=== PATIENT | male | born 1975 | race Caucasian/White ===

== ENCOUNTER 2018-12-03 12:35 | Inpatient (IN) ==
--- NOTE | 2018-12-03 14:24 | Emergency Department Note ---
Disposition Clinical Impression: Cellulitis of knee, Knee effusion, right Cellulitis Qualifiers: Site of cellulitis: extremity Site of cellulitis of extremity: lower extremity Laterality: right Qualified Code(s): L03.115 - Cellulitis of right lower limb Disposition: Admitted As Inpatient Condition: Good Time of Disposition: 18:23 General Adult HPI - General Chief complaint: ED Extremity Problem,Nontraumatic Stated complaint: Right leg cellulitis Time Seen by Provider: 12/03/18 14:06 Source: patient Limitations: no limitations Nursing Notes Reviewed: Yes Vital Signs Reviewed: Yes - History of Present Illness HPI Narrative: Patient is a 42-year-old male history of diabetes hypertension hyperlipidemia, psoriasis and recent cellulitis who presents to the emergency department from his rheumatology clinic appointment. He states that his pound keeper told him to come in to get IV antibiotics for his right leg cellulitis that is not resolved with outpatient antibiotic treatment with Augmentin. Patient reports his right knee is swollen, tender, pain with movement and that the redness has gone away significantly but has not completely resolved. Patient was recently in the hospital for treatment of this cellulitis and concerns for septic arthritis. Blood cultures and joint aspirate culture were negative. Patient was discharged on Augmentin, and told to follow up with rheumatology for evaluation for his psoriasis. Patient admits that he was constipated for the past week or so but today he has had multiple bowel movements. Patient denies fever, chills, chest pain, shortness of breath, abdominal pain, urinary changes. He admits to a cough that is had since before his admission but has not gone away. Pain Scale: 5 - Related Data Home Medications Medication Instructions Recorded Confirmed Lisinopril [Zestril] 5 mg PO DAILY 12/11/17 11/23/18 Atorvastatin [Lipitor] 40 mg PO HS 11/24/18 11/24/18 Dapagliflozin Propanediol [Farxiga] 10 mg PO DAILY 11/24/18 11/24/18 GlipiZIDE [Glucotrol] 5 mg PO BID 11/24/18 11/24/18 Ibuprofen 800 mg PO BID PRN 11/24/18 11/24/18 Insulin Degludec/Liraglutide 0 - 50 units SQ DAILY 11/24/18 11/24/18 [Xultophy 100 Unit-3.6MG/ml Pen] Insulin LISPRO [Humalog Kwikpen 0 unit SQ TIDAC 11/24/18 11/24/18 U-100] Metformin HCl [Fortamet] 500 mg PO DAILY 11/24/18 11/24/18 Omeprazole [PriLOSEC] 40 mg PO DAILY 11/24/18 11/24/18 Previous Rx's Medication Instructions Recorded Amoxicillin/Clavulanate [Augmentin] 875 mg PO BIDWM #14 tablet 11/27/18 Doxycycline Hyclate 100 mg PO BID #14 capsule 11/27/18 Lactobacillus [Culturelle] 1 each PO BID #30 cap.sprink 11/27/18 predniSONE [PredniSONE] 40 mg PO DAILY #14 tablet 11/27/18 Allergies Allergy/AdvReac Type Severity Reaction Status Date / Time No Known Allergies Allergy Verified 12/03/18 13:02 Constitutional: Denies: fever, chills Cardiovascular: Denies: chest pain, palpitations, dyspnea on exertion, orthopnea Respiratory: Reports: cough. Denies: dyspnea, wheezes Gastrointestinal: Reports: diarrhea, constipation. Denies: abdominal pain, nausea, vomiting Genitourinary: Reports: as per HPI. Denies: urgency, dysuria Integumentary: Reports: rash, lesions Past Medical History - Past Medical History Attestation: Yes The following information was validated with the patient. Medical history: Reports: diabetes, GERD, hyperlipidemia, hypertension Surgical history: Reports: no surgical history Psychiatric history: Reports: no psych history - Social History Smoking Status: Former smoker Smokeless Tobacco Status: No Alcohol use: Reports: none Drug use: Reports: none Physical Exam - General Limitations: no limitations General appearance: alert, in no apparent distress - Head Head exam: atraumatic, normocephalic - Eye Eye exam: Present: normal appearance, PERRL, EOMI - ENT ENT exam: normal exam, normal oropharynx, mucous membranes moist - Neck Neck exam: Present: normal inspection, full ROM - Chest Chest inspection: Present: normal inspection, symmetric chest wall rise - Respiratory Respiratory exam: Absent: respiratory distress - Cardiovascular Cardiovascular exam: Present: regular rate, normal rhythm, normal heart sounds - Abdominal Exam Abdominal exam: Present: soft, Non-Tender. Absent: tenderness, distention - Extremities Exam Extremities exam: Present: other (Right knee swollen, tenderness, redness on the lateral aspect of the second seconds approximately 6 cm up his thigh. Decreased range of motion of the right joint with pain. Patient has several psoriatic lesions on his lower extremities.) Course Course Narrative: Patient presented after an appointment with his pound keeper who had concerns for continued cellulitis. Patient was recently admitted for the cellulitis. We will collect labs repeat a CT scan of the patient's right knee and treat with empiric antibiotics. - Reevaluation(s) Reevaluation #1: [place] Dr. Garcia who sent the patient here. He had concerns for continued cellulitis in one of the patient be evaluated. - Consultations Consultation #1: Spoke with Dr. Diggs of orthopedics. He recommended admission to the hospitalist team for IV antibiotics and a consult specifically for Dr. Sundeep Briones who had seen this patient previously. Time: 17:03 Vital Signs Temperature 98.0 F 12/03/18 13:00 Pulse Rate 96 12/03/18 13:00 Respiratory Rate 16 12/03/18 13:00 Blood Pressure 160/109 12/03/18 13:00 O2 Sat by Pulse Oximetry 98 12/03/18 13:00 Temperature 97.8 F 12/03/18 20:39 Pulse Rate 96 12/03/18 20:39 Respiratory Rate 16 12/03/18 20:39 Blood Pressure 172/96 12/03/18 20:39 O2 Sat by Pulse Oximetry 97 12/03/18 20:39 Oxygen Delivery Oxygen Delivery Room Air Medical Decision Making - MDM Narrative Medical decision making narrative: Patient presented emergency department with concerns for cellulitis refractory to outpatient treatment on antibiotics. Patient had been evaluated for septic arthritis previously and admitted for treatment of the cellulitis. Patient's pound keeper today for fear of this cellulitis was not improving and should come in to receive IV antibiotics. Spoke with the orthopedist recommended admission and consult to orthopedics. - Medical Records Medical records reviewed: Yes I reviewed the patient's medical records. - Lab Data Lab results reviewed: Yes I reviewed the patient's lab results. Result diagrams: 12/03/18 14:35 12/03/18 14:35 Lab Results 12/03/18 12/03/18 12/03/18 Range/Units 14:35 14:35 14:35 WBC 12.1 H (4.3-11.1) K/mcL RBC 4.91 (4.19-5.50) M/mcL Hgb 14.3 (12.9-16.9) g/dL Hct 42.5 (37.5-50.1) % MCV 86.6 (83.0-100.0) fL MCH 29.1 (28.0-33.3) pg MCHC 33.6 (31.6-35.5) g/dL RDW 12.5 (11.5-14.5) % Plt Count 299 (140-400) K/mcL MPV 10.6 (9.4-12.4) fL Immature Gran % 1.1 (0-4) % Seg Neutrophils % 90.4 % Lymphocytes % 6.6 % Monocytes % 1.7 % Eosinophils % 0.0 % Basophils % 0.2 % Neutrophils # 10.9 H (1.6-8.9) K/mcL Lymphocytes # 0.8 (0.6-4.6) K/mcL Monocytes # 0.2 (0.0-1.3) K/mcL Eosinophils # 0.0 (0.0-0.6) K/mcL Basophils # 0.0 (0.0-0.2) K/mcL Sodium 135 L (136-145) mEq/L Potassium 4.6 (3.5-5.1) mEq/L Chloride 95 L (98-107) mEq/L Carbon Dioxide 31 H (23-29) mEq/L BUN 14 (6-20) mg/dL Creatinine 0.93 (0.70-1.30) mg/dL Est GFR ( Amer) > 60 (> 60) Est GFR (Non-Af Amer) > 60 (> 60) BUN/Creatinine Ratio 15 (6-26) Glucose 384 H (70-105) mg/dL Calculated Osmolality 296 (280-300) Lactic Acid 1.0 (0.5-2.2) mmol/L Calcium 9.5 (8.6-10.3) mg/dL - Radiology Data Radiology results reviewed: Yes I reviewed the patient's radiology results.
[2018-12-03] MEDS ORDERED: Piperacillin/Tazobactam 3.375 GM in 0.9 % Sodium Chloride Mini Bag 100 ML IVPB ONE (14:45)
[2018-12-03 15:01] LABS: Basophils % 0.2 %; Hematocrit 42.5 % (37.5-50.1); Hemoglobin 14.3 g/dL (12.9-16.9); Immature Granulocytes % 1.1 % (0-4); Lymphocytes # 0.8 K/mcL (0.6-4.6); Lymphocytes % 6.6 %; Mean Corpuscular HGB Conc 33.6 g/dL (31.6-35.5); Mean Corpuscular Hemoglobin 29.1 pg (28.0-33.3); Mean Corpuscular Volume 86.6 fL (83.0-100.0); Mean Platelet Volume 10.6 fL (9.4-12.4); Monocytes # 0.2 K/mcL (0.0-1.3); Monocytes % 1.7 %; Neutrophils # 10.9 K/mcL (1.6-8.9); Platelet Count 299 K/mcL (140-400); Red Blood Count 4.91 M/mcL (4.19-5.50); Red Cell Distribution Width 12.5 % (11.5-14.5); Segmented Neutrophils % 90.4 %; White Blood Count 12.1 K/mcL (4.3-11.1)
[2018-12-03] MEDS ORDERED: 0.9 % Sodium Chloride 1,000 ML IVC ONE (15:13)
[2018-12-03] MEDS ORDERED: Isovue-370 500 ML BOTTLE IVP ONE (15:23)
[2018-12-03 15:26] LABS: BUN/Creatinine Ratio 15 (6-26); Blood Urea Nitrogen 14 mg/dL (6-20); Calcium 9.5 mg/dL (8.6-10.3); Carbon Dioxide 31 mEq/L (23-29); Chloride 95 mEq/L (98-107); Glucose 384 mg/dL (70-105); Osmolality,Calculated 296 (280-300); Potassium 4.6 mEq/L (3.5-5.1); Sodium 135 mEq/L (136-145); eGFR For African Americans > 60 (> 60); eGFR For Non-African Americans > 60 (> 60)
--- NOTE | 2018-12-03 17:46 | Emergency Department Note ---
Disposition Clinical Impression: Cellulitis of knee, Knee effusion, right Cellulitis Qualifiers: Site of cellulitis: extremity Site of cellulitis of extremity: lower extremity Laterality: right Qualified Code(s): L03.115 - Cellulitis of right lower limb Disposition: Admitted As Inpatient Condition: Good Instructions: Cellulitis (ED) Referrals: Verena Matt, ISABEL [Primary Care Provider] - Forms: ED Satisfaction Letter Time of Disposition: 17:46 General Adult HPI - General Chief complaint: ED Extremity Problem,Nontraumatic Stated complaint: Right leg cellulitis Time Seen by Provider: 12/03/18 14:06 Source: patient Limitations: no limitations - History of Present Illness Pain Scale: 5 - Related Data Home Medications Medication Instructions Recorded Confirmed Lisinopril [Zestril] 5 mg PO DAILY 12/11/17 11/23/18 Atorvastatin [Lipitor] 40 mg PO HS 11/24/18 11/24/18 Dapagliflozin Propanediol [Farxiga] 10 mg PO DAILY 11/24/18 11/24/18 GlipiZIDE [Glucotrol] 5 mg PO BID 11/24/18 11/24/18 Ibuprofen 800 mg PO BID PRN 11/24/18 11/24/18 Insulin Degludec/Liraglutide 0 - 50 units SQ DAILY 11/24/18 11/24/18 [Xultophy 100 Unit-3.6MG/ml Pen] Insulin LISPRO [Humalog Kwikpen 0 unit SQ TIDAC 11/24/18 11/24/18 U-100] Metformin HCl [Fortamet] 500 mg PO DAILY 11/24/18 11/24/18 Omeprazole [PriLOSEC] 40 mg PO DAILY 11/24/18 11/24/18 Previous Rx's Medication Instructions Recorded Amoxicillin/Clavulanate [Augmentin] 875 mg PO BIDWM #14 tablet 11/27/18 Doxycycline Hyclate 100 mg PO BID #14 capsule 11/27/18 Lactobacillus [Culturelle] 1 each PO BID #30 cap.sprink 11/27/18 predniSONE [PredniSONE] 40 mg PO DAILY #14 tablet 11/27/18 Allergies Allergy/AdvReac Type Severity Reaction Status Date / Time No Known Allergies Allergy Verified 12/03/18 13:02 Constitutional: Denies: fever, chills Cardiovascular: Denies: chest pain, palpitations, dyspnea on exertion, orthopnea Respiratory: Reports: cough. Denies: dyspnea, wheezes Gastrointestinal: Reports: diarrhea, constipation. Denies: abdominal pain, nausea, vomiting Genitourinary: Reports: as per HPI. Denies: urgency, dysuria Integumentary: Reports: rash, lesions Past Medical History - Past Medical History Medical history: Reports: diabetes, GERD, hyperlipidemia, hypertension Surgical history: Reports: no surgical history Psychiatric history: Reports: no psych history - Social History Smoking Status: Former smoker Smokeless Tobacco Status: No Alcohol use: Reports: none Drug use: Reports: none Physical Exam - General Limitations: no limitations General appearance: alert, in no apparent distress Course - Consultations Consultation #1: discussed case wit Dr. De Leon and she accepts patinet for admission. Time: 18:47 Vital Signs Temperature 98.0 F 12/03/18 13:00 Pulse Rate 96 12/03/18 13:00 Respiratory Rate 16 12/03/18 13:00 Blood Pressure 160/109 12/03/18 13:00 O2 Sat by Pulse Oximetry 98 12/03/18 13:00 Temperature 98.0 F 12/03/18 13:00 Pulse Rate 96 12/03/18 17:28 Respiratory Rate 18 12/03/18 17:28 Blood Pressure 172/105 12/03/18 17:28 O2 Sat by Pulse Oximetry 96 12/03/18 17:28 Oxygen Delivery Oxygen Delivery Room Air Medical Decision Making - Lab Data Result diagrams: 12/03/18 14:35 12/03/18 14:35 Lab Results 12/03/18 12/03/18 12/03/18 Range/Units 14:35 14:35 14:35 WBC 12.1 H (4.3-11.1) K/mcL RBC 4.91 (4.19-5.50) M/mcL Hgb 14.3 (12.9-16.9) g/dL Hct 42.5 (37.5-50.1) % MCV 86.6 (83.0-100.0) fL MCH 29.1 (28.0-33.3) pg MCHC 33.6 (31.6-35.5) g/dL RDW 12.5 (11.5-14.5) % Plt Count 299 (140-400) K/mcL MPV 10.6 (9.4-12.4) fL Immature Gran % 1.1 (0-4) % Seg Neutrophils % 90.4 % Lymphocytes % 6.6 % Monocytes % 1.7 % Eosinophils % 0.0 % Basophils % 0.2 % Neutrophils # 10.9 H (1.6-8.9) K/mcL Lymphocytes # 0.8 (0.6-4.6) K/mcL Monocytes # 0.2 (0.0-1.3) K/mcL Eosinophils # 0.0 (0.0-0.6) K/mcL Basophils # 0.0 (0.0-0.2) K/mcL Sodium 135 L (136-145) mEq/L Potassium 4.6 (3.5-5.1) mEq/L Chloride 95 L (98-107) mEq/L Carbon Dioxide 31 H (23-29) mEq/L BUN 14 (6-20) mg/dL Creatinine 0.93 (0.70-1.30) mg/dL Est GFR ( Amer) > 60 (> 60) Est GFR (Non-Af Amer) > 60 (> 60) BUN/Creatinine Ratio 15 (6-26) Glucose 384 H (70-105) mg/dL Calculated Osmolality 296 (280-300) Lactic Acid 1.0 (0.5-2.2) mmol/L Calcium 9.5 (8.6-10.3) mg/dL Attestation Statement - Attestation Attestation: I reviewed the residents documentation and agree with the residents assessment and plan of care. I have personally had face to face time with the patient. (Brief History, Brief Exam, and MDM) I personally supervised and was present for the ortiz/critical portions of the following procedures completed by the resident: 42 year old male presents to the ED with complaints of right knee pain and infection. PAtinet states that he was most recently admitted for this same problem but it was worse than and he was evaluted for septic arhtritis. PAtinet states that he infection appears to have gotten better. however he has been on outpatient therapy with antibitoics and was being evaluated by his roadside mechanic Dr. Kaba who was concerned for increased infection. WE have done a repeat CT scan that shows cellulitis and possible patellar phlegmon, and we have discussed case with ortho who will see in consult. admit to medicine with IV ABX started
[2018-12-03] MEDS ORDERED: *HR* Dextrose 50 % in Water (Syg) 50 ML SYRINGE IVP PRN (20:45)
[2018-12-03] MEDS ORDERED: Dextrose Gel 15 GM/37.5 ML TUBE PO PRN ×2 (20:45)
[2018-12-03] MEDS ORDERED: Acetaminophen 325 MG TABLET PO PRN (20:45)
--- NOTE | 2018-12-03 22:15 | Internal Med History&Physical ---
Date of Encounter: 12/03/18 Time of Encounter: 22:14 Internal Medicine - H&P: HPI Chief complaint: right knee swelling Admitted From: Home Plans for Post Hospital Care: Home History of present illness: Josh Bonner is a 42 year old man with poorly controlled diabetes, hypertension, hyperlipidemia and psoriasis who was admitted here about 10 days ago with the complaint of right knee pain, swelling and erythema in addition to fever and chills. On CT scan he was seen to have extensive edema and fluid circumferentially around the knee within both the subcutaneous fat and muscular compartments compatible with cellulitis, fasciitis and myositis. There was also small moderate-sized joint effusion. Blood work showed elevated procalcitonin levels, CRP and ESR. All these findings are concerning for an infective process and was started on empiric antibiotics. Right knee aspiration was attempted w ith serosanguineous fluid extracted and sent for Gram stain and culture which ended up with of culture growth. He says the erythema and swelling seemed to improve with the IV antibiotics so given this confounding factor and also the fact that he had underlying psoriasis, he was discharged with steroids and a course of oral antibiotics to continue as it was unclear what the actual cause was. Comes back to the emergency room today upon referral from the rheumatology clinic where he went to for follow-up. He says the right knee pain and swelling persists but denies having fever and chills. He says the redness has not returned. Repeat CT scan was done which showed persisting subcutaneous edema and focal fluid with possibly some written enhancement. Lab work showed her leukocyte count of 12.1 is lower than his initial presentation 10 days ago at 17. Blood cultures were obtained and he was given a dose of vancomycin and PipTazo. Of note, he denies any trauma or puncture injuries to the area. He has no underlying hardware there. Vitals: Reviewed General: Well-developed male lying comfortably in bed in no acute distress. Skin: Warm, dry with multiple psoriatic lesions on his lower extremities. HEENT: Moist mucous membranes. No conjunctivae pallor. Neck: No lymphadenopathy. No JVD. No carotid bruits. No palpable thyroid. Chest: Normal thoracic expansion. Normal breath sounds. Clear to auscultation. Heart: Normal S1 & S2; rhythmic. No rubs or murmurs. Abdomen: Non-distended, soft and non-tender to palpation. No peritoneal reaction. Extremities: No clubbing, cyanosis. No calf tenderness. Right knee circumferentially swollen, boggy and moderately tender to palpation. Right foot is notably cold to touch when compared to the left with somewhat diminished DP pulse. Neurological: Awake, alert and oriented to person, place and time. No focal deficits. Psych: Affect appropriate. Assessment/Plan 1. Right knee swelling: Unclear etiology. He has signs concerning for an infection such as the report of erythema improving with antibiotics, the leukocytosis on prior presentation which seemed to lower when started on abx. The elevated CRP/ESR is non-specific and can be seen in both infectious and inflammatory causes such as a reactive arthritis or psoriatic arthritis which remain differentials. His VAN and CCP IgG were negative however. There seems to have been no synovial fluid cell count or testing for crystals on his prior admission. This would be helpful. Given his underlying poorly controlled diabetes, the persisting signs seen clinically and radiologically and his prior response to intravenous antibiotics, will start vancomycin and cefepime. Will consult orthopedic surgery again as he may benefit from another tap especially now with concerns for a rim enhancing collection. 2. Right foot arterial insufficiency: Suspected based on physical exam. Will get an CHAD to check actual flow status. 3. Diabetes: Poorly controlled. Will place on basal and sliding scale insulin. 4. Hypertension: On Lisinopril. Past Med Surg Social Fam HX - Past Medical History Medical history: diabetes, GERD, hyperlipidemia, hypertension Psychiatric history: no psych history - Past Surgical History Surgical History: no surgical history - Social History Smoking Status: Former smoker Smokeless Tobacco Status: No Alcohol use: none Drug use: none - Family History Father Adopted: No Family Member Ethnicity: Non- Living Status: Age at : 63 Hx Family Cardiac Disorders: Yes ([place]) Hx Family Respiratory Disorders: No Hx Family Cancer: Yes Hx Family GI Disorders: No Hx Family Endocrine Disorder: Yes (pt states his father's mother had DM) Hx Family Neuromuscular Disorders: No Hx Family Neurologic Disorders: No Hx Family HEENT Disorders: No Hx Family Autoimmune Disorders: No Mother Adopted: No Family Member Ethnicity: Non- Living Status: Still Living Hx Family Cardiac Disorders: No Hx Family Respiratory Disorders: No Hx Family Cancer: Yes (uterus) Hx Family GI Disorders: No Hx Family Endocrine Disorder: No Hx Family Neuromuscular Disorders: No Hx Family Neurologic Disorders: No Hx Family HEENT Disorders: No Hx Family Autoimmune Disorders: No Internal Medicine - H&P: Meds Lisinopril [Zestril] 5 mg PO DAILY 12/11/17 [History] Atorvastatin [Lipitor] 40 mg PO HS 11/24/18 [History] Dapagliflozin Propanediol [Farxiga] 10 mg PO DAILY 11/24/18 [History] GlipiZIDE [Glucotrol] 5 mg PO BID 11/24/18 [History] Ibuprofen 800 mg PO BID PRN 11/24/18 [History] Insulin Degludec/Liraglutide [Xultophy 100 Unit-3.6MG/ml Pen] 0 - 50 units SQ DAILY 11/24/18 [History] Insulin LISPRO [Humalog Kwikpen U-100] 0 unit SQ TIDAC 11/24/18 [History] Metformin HCl [Fortamet] 500 mg PO DAILY 11/24/18 [History] Omeprazole [PriLOSEC] 40 mg PO DAILY 11/24/18 [History] Amoxicillin/Clavulanate [Augmentin] 875 mg PO BIDWM #14 tablet 11/27/18 [Rx] Doxycycline Hyclate 100 mg PO BID #14 capsule 11/27/18 [Rx] Lactobacillus [Culturelle] 1 each PO BID #30 cap.sprink 11/27/18 [Rx] predniSONE [PredniSONE] 40 mg PO DAILY #14 tablet 11/27/18 [Rx] Allergy/AdvReac Type Severity Reaction Status Date / Time No Known Allergies Allergy Verified 12/03/18 13:02 All Systems PM: A 10-system review of systems was performed and is negative for pertinent findings except as documented above in the HPI. - Constitutional Vitals: Temp Pulse Resp BP Pulse Ox 97.8 F 96 16 172/96 97 12/03/18 20:39 12/03/18 20:39 12/03/18 20:39 12/03/18 20:39 12/03/18 20:39 Exam: . Internal Med - H&P Results - Labs CBC & Chem 7: 12/03/18 14:35 12/03/18 14:35 Labs: Short CBC 12/03/18 Range/Units 14:35 WBC 12.1 H (4.3-11.1) K/mcL Hgb 14.3 (12.9-16.9) g/dL Hct 42.5 (37.5-50.1) % Plt Count 299 (140-400) K/mcL Neutrophils # 10.9 H (1.6-8.9) K/mcL BMP 12/03/18 14:35 Sodium 135 L Potassium 4.6 Chloride 95 L Carbon Dioxide 31 H BUN 14 Creatinine 0.93 Glucose 384 H Calcium 9.5 - Impressions ITS Impressions Chest X-Ray 12/03/18 14:44 IMPRESSION: No evidence for acute cardiopulmonary process. D/ / Prakash Rivera MD / Prakash Rivera MD Interpreting Provider: Prakash Rivera MD Knee CT 12/03/18 15:23 IMPRESSION: Persistent subcutaneous edema diffusely about the knee, similar to prior exam and concerning for cellulitis. No soft tissue gas. Persistent somewhat focal fluid with possibly some thin rim enhancement in the subcutaneous fat anterior to the patella/patellar tendon. This may reflect phlegmon or developing abscess, similar to prior exam. This measures grossly 2.6 x 3.6 x 1.3 cm. No internal gas. Persistent intra fascial fluid to the superficial fascia of distal anterolateral quadriceps musculature, also similar and concerning for nonspecific fasciitis. No intra fascial gas identified. Given similarity since 11/23/2018, necrotizing fasciitis is unlikely. Stable small nonspecific knee joint effusion. Septic arthritis cannot be excluded based on this exam. No acute bony abnormalities. No CT evidence for osteomyelitis. D/ / 12/03/2018 16:55:40 Prakash Rivera MD / [email or web address] Interpreting Provider: Prakash Rivera MD - Time Spent With Patient Total time spent is greater than 50% in coordination of care (as documented) at patient's floor/unit and/or counseling patient:
[2018-12-03] MEDS: Insulin LISPRO 300 UNITS/3 ML VIAL SQ SCH (22:51)
[2018-12-03] MEDS: Insulin DETEMIR 100 UNIT/ML X5UNITS SQ SCH (23:01)
[2018-12-04 04:09] LABS: White Blood Count 10.9 K/mcL (4.3-11.1)
[2018-12-04 04:10] LABS: Basophils % 0.4 %; Eosinophils # 0.1 K/mcL (0.0-0.6); Eosinophils % 0.5 %; Hematocrit 40.6 % (37.5-50.1); Hemoglobin 13.6 g/dL (12.9-16.9); Immature Granulocytes % 0.9 % (0-4); Lymphocytes # 2.6 K/mcL (0.6-4.6); Lymphocytes % 23.9 %; Mean Corpuscular HGB Conc 33.5 g/dL (31.6-35.5); Mean Corpuscular Hemoglobin 28.5 pg (28.0-33.3); Mean Corpuscular Volume 84.9 fL (83.0-100.0); Mean Platelet Volume 10.2 fL (9.4-12.4); Monocytes # 0.6 K/mcL (0.0-1.3); Monocytes % 5.9 %; Neutrophils # 7.5 K/mcL (1.6-8.9); Platelet Count 289 K/mcL (140-400); Red Blood Count 4.78 M/mcL (4.19-5.50); Red Cell Distribution Width 12.4 % (11.5-14.5); Segmented Neutrophils % 68.4 %
[2018-12-04 04:21] LABS: Activated Partial Thrombo Time 32.2 Seconds (26.0-36.0)
[2018-12-04 04:30] LABS: BUN/Creatinine Ratio 11 (6-26); Blood Urea Nitrogen 9 mg/dL (6-20); Calcium 9.3 mg/dL (8.6-10.3); Carbon Dioxide 28 mEq/L (23-29); Chloride 100 mEq/L (98-107); Glucose 208 mg/dL (70-105); Osmolality,Calculated 289 (280-300); Potassium 3.5 mEq/L (3.5-5.1); Sodium 137 mEq/L (136-145); eGFR For African Americans > 60 (> 60); eGFR For Non-African Americans > 60 (> 60)
[2018-12-04] MEDS: Cefepime HCl 2,000 MG in 0.9 % Sodium Chloride Mini Bag 100 ML IVPB SCH ×2 (05:19→17:35)
[2018-12-04] MEDS: *HR* Heparin 5,000 UNIT/ML VIAL SQ SCH ×2 (05:23→17:55)
[2018-12-04] MEDS: traMADol 50 MG TABLET PO PRN ×2 (06:00→15:36)
[2018-12-04] MEDS ORDERED: Gadolinium Contrast Agent (WT Based) IV PRN (09:19)
[2018-12-04] MEDS: Insulin LISPRO 300 UNITS/3 ML VIAL SQ SCH ×4 (09:46→20:56)
[2018-12-04] MEDS: 0.9 % Sodium Chloride 1,000 ML IVC SCH (09:47)
--- NOTE | 2018-12-04 11:08 | Orthopedic Consult Note ---
Date of Encounter: 12/04/18 Time of Encounter: 12:20 Assessment and Plan (1) Pain in right knee Current Visit: Yes Status: Acute Qualifiers: Chronicity: unspecified Qualified Code(s): M25.561 - Pain in right knee (2) Effusion, right knee Current Visit: Yes Status: Acute History of Present Illness Chief complaint: right knee pain HPI: Mr. Bonner is a 42 year old male presenting to ED for right knee pain/swelling concern for infection. He was admitted last week for this same issue and had knee aspiration by Dr. Briones which revealed no infection. He was discharged with plan for rheumatologic and orthopedic follow up. Patient was to see this author yesterday in office, however, was sent to ED on recommendation from Dr. Kaba, Rheumatology. Patient states his pain and swelling is not much better from day of discharge from hospital on 11/27. Patient's spouse and friend at bedside. On exam knee is noted to be swollen with faint erythema surrounding anterior knee. No induration or flucutance is noted. Moderate effusion is noted to the right knee. No palpable focal area of fluctuance or induration noted as would correspond on CT findings, however, patient is more tender with expression of greater pain to medial knee aspect of joint line. Patient also points to pain to right thigh. No calf tenderness, erythema, or warmth bilaterally 1+ pitting edema noted to rigt foot to ankle. Knee motion appx 0-90 degrees with relative ease, patient wincing during this motion. Ankle motion intact [place] noted to b/l ankles with less erythema and scaling compared to last examination during last week's hospitalization. DP pulses 2+ bilaterally Neurovascularly intact b/l LE. Images and reports reviewed. CT findings of: Persistent subcutaneous edema diffusely about the knee, similar to prior exam and concerning for cellulitis. No soft tissue gas. Persistent somewhat focal fluid with possibly some thin rim enhancement in the subcutaneous fat anterior to the patella/patellar tendon. This may reflect phlegmon or developing abscess, similar to prior exam. This measures grossly 2.6 x 3.6 x 1.3 cm. No internal gas. Persistent intra fascial fluid to the superficial fascia of distal anterolateral quadriceps musculature, also similar and concerning for nonspecific fasciitis. No intra fascial gas identified. Given similarity since 11/23/2018, necrotizing fasciitis is unlikely. Stable small nonspecific knee joint effusion. Septic arthritis cannot be excluded based on this exam. No acute bony abnormalities. No CT evidence for osteomyelitis. Patient case discussed with Dr. Briones At this point, MRI is pending, which will provide further detail regarding concerning findings on CT. Clinically with motion, patient is improved compared to last exam, however, CT findings are different. Will await MRI as ordered by hospitalist for further discussion whether repeat beside aspiration versus IR aspiration is warranted. In the mean time, patient's symptoms have improved with IV antibiotics and therefore will defer at present to hospitalist for choice. Will continue to follow and review MRI findings once obtained. Past Med Surg Social Fam HX - Past Medical History Medical history: diabetes, GERD, hyperlipidemia, hypertension Psychiatric history: no psych history - Past Surgical History Surgical History: no surgical history - Social History Smoking Status: Former smoker Smokeless Tobacco Status: No Alcohol use: none Drug use: none - Family History Father Adopted: No Family Member Ethnicity: Non- Living Status: Age at : 61 Hx Family Cardiac Disorders: Yes (ID) Hx Family Respiratory Disorders: No Hx Family Cancer: Yes Hx Family GI Disorders: No Hx Family Endocrine Disorder: Yes (pt states his father's mother had DM) Hx Family Neuromuscular Disorders: No Hx Family Neurologic Disorders: No Hx Family HEENT Disorders: No Hx Family Autoimmune Disorders: No Mother Adopted: No Family Member Ethnicity: Non- Living Status: Still Living Hx Family Cardiac Disorders: No Hx Family Respiratory Disorders: No Hx Family Cancer: Yes (uterus) Hx Family GI Disorders: No Hx Family Endocrine Disorder: No Hx Family Neuromuscular Disorders: No Hx Family Neurologic Disorders: No Hx Family HEENT Disorders: No Hx Family Autoimmune Disorders: No Medications and Allergies Lisinopril [Zestril] 5 mg PO DAILY 12/11/17 [History] Atorvastatin [Lipitor] 40 mg PO HS 11/24/18 [History] Dapagliflozin Propanediol [Farxiga] 10 mg PO DAILY 11/24/18 [History] GlipiZIDE [Glucotrol] 5 mg PO BID 11/24/18 [History] Ibuprofen 800 mg PO BID PRN 11/24/18 [History] Insulin Degludec/Liraglutide [Xultophy 100 Unit-3.6MG/ml Pen] 50 units SQ DAILY 11/24/18 [History] Insulin LISPRO [Humalog Kwikpen U-100] 0 unit SQ TIDAC 11/24/18 [History] Metformin HCl [Fortamet] 500 mg PO DAILY 11/24/18 [History] Omeprazole [PriLOSEC] 40 mg PO DAILY 11/24/18 [History] Lactobacillus [Culturelle] 1 each PO BID #30 cap.sobiaink 11/27/18 [Rx] Allergy/AdvReac Type Severity Reaction Status Date / Time No Known Allergies Allergy Verified 12/03/18 13:02 All Systems Reviewed: The remainder of the systems were reviewed and are negative Physical Exam - Constitutional Vitals: Temp Pulse Resp BP Pulse Ox 98.3 F 86 16 158/88 96 12/04/18 08:19 12/04/18 08:19 12/04/18 08:19 12/04/18 08:19 12/04/18 08:19 Results - Labs Result Diagrams: 12/04/18 03:53 12/04/18 03:53 Labs: Abnormal lab results WBC 12.1 K/mcL (4.3-11.1) H 12/03/18 14:35 Neutrophils # 10.9 K/mcL (1.6-8.9) H 12/03/18 14:35 Sodium 135 mEq/L (136-145) L 12/03/18 14:35 Chloride 95 mEq/L (98-107) L 12/03/18 14:35 Carbon Dioxide 31 mEq/L (23-29) H 12/03/18 14:35 Glucose 208 mg/dL (70-105) H 12/04/18 03:53 POC Glucose 156 mg/dL (70-99) H 12/04/18 08:23 H & H 12/03/18 12/04/18 Range/Units 14:35 03:53 Hgb 14.3 13.6 (12.9-16.9) g/dL Hct 42.5 40.6 (37.5-50.1) % All other labs normal. Consult Discharge Plan - Plan Referrals: Verena Matt, CUSTOMER PRICING MANAGER [Primary Care Provider] -
[2018-12-04] MEDS: Ketorolac 30 MG/ML VIAL IVP PRN (17:34)
--- NOTE | 2018-12-04 20:15 | Internal Med Progress Note ---
Hospitalist Progress Note - Encounter Date of Encounter: 12/04/18 Time of Encounter: 12:30 - Subjective Interval History: Mr Bonner stated his knee swelling never felt resolved with the antibiotics and prednisone at discharge. CT of the lower extremity was concerning for possible abscess MRI pending GEN: Denies fever, chills or malaise HEENT: Denies headache blurriness, or dysphagia RESP: Denies SOB or cough CV: Denies chest pain or palpitations GI: Denies Nausea, vomiting, diarrhea or constipation Reviewed current in hospital medications with modifications see orders Reviewed Routine labs - Exam Vitals: Temp Pulse Resp BP Pulse Ox 98.3 F 101 16 159/83 96 12/04/18 15:07 12/04/18 15:07 12/04/18 15:07 12/04/18 15:07 12/04/18 15:07 Exam: GEN: NAD, A&O x 3, Pleasant and conversant, at his bedside SKIN: [place] warm acyanotic not jaundice HEART: RRR, no murmurs LUNGS: CTA no wheeze or crackles, overall non labored ABDOMEN; Soft, non tender or distended, BS x 4 normactive EXT: No LE edema, however right lower extremity knee and soft tissue swelling noted no erythema or warmth Pedal pulses 1+, radial pulses 2+ PSYCH: Mood and affect is appropriate - Assessment and Plan (1) Effusion, right knee Current Visit: Yes Status: Acute Assessment and Plan: Patient with persistent swelling in the right knee initially attribute it to possible autoimmune condition status post knee aspirate which was unrevealing from his last hospitalization 2 weeks ago. Patient's anti-CCP antibodies was negative he did follow up with salon supervisor and admitted to be compliant with the discharge medications. CT scan is positive for possible abscess MRI now reveals likely due to abscess. He is on vancomycin and cefepime, would likely require surgical intervention of ortho team on board appreciate their input. Of note He is afebrile and has no leukocytosis (2) Diabetes Current Visit: Yes Status: Acute Assessment and Plan: Continue insulin per protocol, prior hospitalization poorly controlled diabetic (3) Hypertension Current Visit: Yes Status: Acute Assessment and Plan: His abscess is high risk for sepsis we will watch BP DVT Prophylaxis: On heparin subcutaneous - Time Spent with Patient Total time spent is greater than 50% in coordination of care (as documented) at patient's floor/unit and/or counseling patient: Internal Medicine: Result - Labs CBC & Chem 7: 12/04/18 03:53 12/04/18 03:53 Labs: Short CBC 12/04/18 Range/Units 03:53 WBC 10.9 (4.3-11.1) K/mcL Hgb 13.6 (12.9-16.9) g/dL Hct 40.6 (37.5-50.1) % Plt Count 289 (140-400) K/mcL Neutrophils # 7.5 (1.6-8.9) K/mcL BMP 12/04/18 03:53 Sodium 137 Potassium 3.5 Chloride 100 Carbon Dioxide 28 BUN 9 Creatinine 0.81 Glucose 208 H Calcium 9.3 - ABG Interpretation ABG results: PT/INR, D-dimer PT 11.0 Seconds (9.4-12.1) 12/04/18 03:53 - Impressions Impressions Lower Extremity MRI 12/04/18 09:19 IMPRESSION: 1. Large heterogeneous peripherally enhancing fluid collection extending from the anterior surface of the distal vastus lateralis muscle to the subcutaneous fat anterior to the mid patellar tendon measuring approximately 10.8 x 4.7 x 1.4 cm compatible with an abscess. 2. Diffuse subcutaneous edema compatible with cellulitis. 3. Moderate edema within the distal vastus lateralis muscle and mild edema within the distal vastus medialis muscle compatible with myositis. No evidence of fasciitis. 4. Moderate nonspecific knee effusion. No evidence of osteomyelitis. 5. Mild patellofemoral compartment degenerative changes. No convincing evidence of internal derangement. 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
[2018-12-04] MEDS: Insulin DETEMIR 100 UNIT/ML X5UNITS SQ SCH (20:56)
[2018-12-05 05:31] LABS: Basophils % 0.4 %; Eosinophils # 0.1 K/mcL (0.0-0.6); Eosinophils % 0.9 %; Hematocrit 42.5 % (37.5-50.1); Hemoglobin 14.1 g/dL (12.9-16.9); Immature Granulocytes % 0.8 % (0-4); Lymphocytes # 2.1 K/mcL (0.6-4.6); Lymphocytes % 21.9 %; Mean Corpuscular HGB Conc 33.2 g/dL (31.6-35.5); Mean Corpuscular Hemoglobin 28.6 pg (28.0-33.3); Mean Corpuscular Volume 86.2 fL (83.0-100.0); Mean Platelet Volume 10.1 fL (9.4-12.4); Monocytes # 0.8 K/mcL (0.0-1.3); Monocytes % 8.2 %; Neutrophils # 6.5 K/mcL (1.6-8.9); Platelet Count 249 K/mcL (140-400); Red Blood Count 4.93 M/mcL (4.19-5.50); Red Cell Distribution Width 12.5 % (11.5-14.5); Segmented Neutrophils % 67.8 %; White Blood Count 9.6 K/mcL (4.3-11.1)
[2018-12-05 05:59] LABS: BUN/Creatinine Ratio 13 (6-26); Blood Urea Nitrogen 13 mg/dL (6-20); Carbon Dioxide 30 mEq/L (23-29); Chloride 98 mEq/L (98-107); Glucose 254 mg/dL (70-105); Osmolality,Calculated 293 (280-300); Sodium 137 mEq/L (136-145); eGFR For African Americans > 60 (> 60); eGFR For Non-African Americans > 60 (> 60)
[2018-12-05] MEDS: Cefepime HCl 2,000 MG in 0.9 % Sodium Chloride Mini Bag 100 ML IVPB SCH ×2 (06:13→17:51)
[2018-12-05] MEDS: 0.9 % Sodium Chloride 1,000 ML IVC SCH ×2 (06:13→21:27)
[2018-12-05] MEDS: *HR* Heparin 5,000 UNIT/ML VIAL SQ SCH ×2 (06:13→17:51)
[2018-12-05] MEDS: Insulin LISPRO 300 UNITS/3 ML VIAL SQ SCH ×4 (07:47→21:28)
--- NOTE | 2018-12-05 08:53 | Orthopedics Progress Note ---
Date of Encounter: 12/05/18 Time of Encounter: 16:30 - Assessment and Plan (1) Pain in right knee Status: Acute Qualifiers: Chronicity: unspecified Qualified Code(s): M25.561 - Pain in right knee (2) Effusion, right knee Status: Acute (3) Abscess of right leg Status: Acute Subjective Principal diagnosis: right knee/thigh pain Interval history: Patient states improved pain since IR aspiration. Patient having continued tenderness along joint line. Patient educated regarding possible surgical intervention regarding fluid collection should risk of knee joint infection continue to exist. Patient and spouse verbalize understanding Await Micro results of IR aspiration of fluid collection If positive, will aspirate joint to ensure no communication with joint space. Will reevaluate patient in the morning. Objective Vital signs: Vital Signs Temp Pulse Resp BP Pulse Ox 12/05/18 06:27 98.4 F 90 16 150/80 98 12/04/18 20:43 98.1 F 90 15 151/80 95 12/04/18 15:07 98.3 F 101 16 159/83 96 12/04/18 11:10 98.1 F 91 16 154/89 96 Intake and Output 12/04/18 12/05/18 12/05/18 23:59 07:59 15:59 Intake Total 1590 / 2900 100 / 100 Balance 1590 / 2900 100 / 100 Intake: IV Fluids 1350 / 1700 100 / 100 0.9 % Sodium Chloride 1,000 ML 1000 / 1000 @ 75 mls/hr IVC .[id number] [facility] Rx #:[id number] Maxipime 2,000 MG In 0.9 % 100 / 200 100 / 100 Sodium Chloride (Mini-Bag +) 100 ML @ 200 mls/hr IVPB Q12HR [facility] Rx#:[id number] Vancocin 1,500 MG In 0.9 % 250 / 500 Sodium Chloride 250 ML @ 167 mls/hr IVPB Q12H [facility] Rx#: [id number] Oral 240 / 1200 Other: Meal Dinner Percent of Meal Consumed 100% # Voids 1 Blood Glucose* 257 258 - Labs CBC & BMP: 12/11/18 03:26 12/11/18 03:26 Labs: Abnormal lab results WBC 12.1 K/mcL (4.3-11.1) H 12/03/18 14:35 Neutrophils # 10.9 K/mcL (1.6-8.9) H 12/03/18 14:35 Sodium 135 mEq/L (136-145) L 12/03/18 14:35 Chloride 95 mEq/L (98-107) L 12/03/18 14:35 Carbon Dioxide 30 mEq/L (23-29) H 12/05/18 04:44 Glucose 254 mg/dL (70-105) H 12/05/18 04:44 POC Glucose 257 mg/dL (70-99) H 12/04/18 20:41 Vancomycin Trough 17 mcg/mL (5-10) H 12/05/18 04:44 Consult Discharge Plan - Plan Instructions: Cellulitis (DC), Diabetes Mellitus Type 2 in Adults (DC) Additional Instructions: Cleaned the wound to right knee daily using normal saline, pat dry, apply xerofrom, ABD pad, cast padding and alphonso wrap Referrals: Katey Kiran PAC [Physician House Carpenter Helper] - 12/13/18 2:15 pm Cecilia Rivera DISTRIBUTING CLERK [Advanced Practice Nurse] - 12/26/18 3:00 pm Verena Matt CNP [Primary Care Provider] - Prescriptions: ceFAZolin [Ancef] 2,000 mg IV Q8H #27 vial cephALEXin [Keflex] 500 mg PO TID 14 Days #42 capsule
[2018-12-05] MEDS: amLODIPine 5 MG TABLET PO SCH (10:15)
[2018-12-05] MEDS: Lactobacillus 1 EACH CAP.SPRINK PO SCH ×2 (10:15→21:28)
[2018-12-05 10:44] LABS: C-Reactive Protein 22 mg/L (Less than 10)
[2018-12-05] MEDS: traMADol 50 MG TABLET PO PRN (10:49)
[2018-12-05] MEDS: Ketorolac 30 MG/ML VIAL IVP PRN (13:20)
[2018-12-05] MEDS ORDERED: *HR* HYDROmorphone 2 MG/ML SYRINGE IVP PRN (13:32)
--- NOTE | 2018-12-05 14:22 | Internal Med Progress Note ---
Hospitalist Progress Note - Encounter Date of Encounter: 12/05/18 Time of Encounter: 14:10 - Subjective Interval History: Discussed case with Dr Briones the orthopedic surgeon he is recommending IR intervention to aspirate the abscess. Patient now recalls having an open wound about 2 weeks he sustained while he was changing his car tire prior to his right knee swelling. He reports pain in the right knee refractory to his tramadol GEN: Denies fever, chills or malaise HEENT: Denies headache blurriness, or dysphagia RESP: Denies SOB or cough CV: Denies chest pain or palpitations GI: Denies Nausea, vomiting, diarrhea or constipation Reviewed current in hospital medications with modifications see orders Reviewed Routine labs - Exam Vitals: Temp Pulse Resp BP Pulse Ox 99.3 F 86 16 149/79 96 12/05/18 12:30 12/05/18 12:30 12/05/18 12:30 12/05/18 12:30 12/05/18 12:30 Exam: GEN: NAD, A&O x 3, Pleasant and conversant, , male best friend and a female friend were at his bedside SKIN: [place] warm acyanotic not jaundice HEART: RRR, no murmurs LUNGS: CTA no wheeze or crackles, overall non labored ABDOMEN; Soft, non tender or distended, BS x 4 normactive EXT: No LE edema, however right lower extremity knee and soft tissue swelling noted no erythema or warmth Pedal pulses 1+, radial pulses 2+ PSYCH: Mood and affect is appropriate - Assessment and Plan (1) Abscess of right leg Current Visit: Yes Status: Acute Assessment and Plan: Patient is scheduled for interventional radiology intervention with drainage of abscess patient recalls having an open wound few weeks prior to his right knee and soft tissue swelling. Of note during his last hospitalization when he presented with right knee effusion he had joint aspirate which was serosanguineous and the culture was negative. There were initial concern for autoimmune processes due to his history of psoriasis with concern for psoriatic joint however his anti-CCP was negative and his VAN screen was negative. Other possible causes could be pseudogout as such during dialysis has been ordered, we appreciate the surgical team input. We will continue vancomycin and cefepime (2) Effusion, right knee Current Visit: Yes Status: Acute Assessment and Plan: See plan as above Patient with persistent swelling in the right knee initially attribute it to possible autoimmune condition status post knee aspirate which was unrevealing from his last hospitalization 2 weeks ago. Patient's anti-CCP antibodies was negative he did follow up with manager local and admitted to be compliant with the discharge medications. CT scan is positive for possible abscess MRI now reveals likely due to abscess. He is on vancomycin and cefep whit, would likely require surgical intervention of ortho team on board appreciate their input. Of note He is afebrile and has no leukocytosis (3) Diabetes Current Visit: Yes Status: Acute Assessment and Plan: Continue insulin per protocol, prior hospitalization poorly controlled diabetic- A1c was 11.9 two weeks ago, discussed glycemic control with patient again today (4) Hypertension Current Visit: Yes Status: Acute Assessment and Plan: His abscess is high risk for sepsis we will watch BP, however he has been afebrile and no leukocytosis will start treating his blood pressure include amlodipine DVT Prophylaxis: Continue heparin subcutaneous - Time Spent with Patient Total time spent is greater than 50% in coordination of care (as documented) at patient's floor/unit and/or counseling patient: Internal Medicine: Result - Labs CBC & Chem 7: 12/05/18 04:44 12/05/18 04:44 Labs: Short CBC 12/05/18 Range/Units 04:44 WBC 9.6 (4.3-11.1) K/mcL Hgb 14.1 (12.9-16.9) g/dL Hct 42.5 (37.5-50.1) % Plt Count 249 (140-400) K/mcL Neutrophils # 6.5 (1.6-8.9) K/mcL BMP 12/05/18 04:44 Sodium 137 Potassium 4.0 Chloride 98 Carbon Dioxide 30 H BUN 13 Creatinine 1.00 Glucose 254 H Calcium 9.0 - ABG Interpretation ABG results: PT/INR, D-dimer PT 11.0 Seconds (9.4-12.1) 12/04/18 03:53 - Impressions Impressions Lower Extremity MRI 12/04/18 09:19 IMPRESSION: 1. Large heterogeneous peripherally enhancing fluid collection extending from the anterior surface of the distal vastus lateralis muscle to the subcutaneous fat anterior to the mid patellar tendon measuring approximately 10.8 x 4.7 x 1.4 cm compatible with an abscess. 2. Diffuse subcutaneous edema compatible with cellulitis. 3. Moderate edema within the distal vastus lateralis muscle and mild edema within the distal vastus medialis muscle compatible with myositis. No evidence of fasciitis. 4. Moderate nonspecific knee effusion. No evidence of osteomyelitis. 5. Mild patellofemoral compartment degenerative changes. No convincing evidence of internal derangement. D/ / Bill Carballo MD / Bill Carballo MD Interpreting Provider: Bill Carballo MD Consult Discharge Plan - Plan Referrals: Verena Matt, OTOLOGIST [Primary Care Provider] - (3) Diabetes Qualifiers: Diabetes mellitus type: type 2 Diabetes mellitus care home insulin use: with care home use Diabetes mellitus complication status: without complication Qualified Code(s): E11.9 - Type 2 diabetes mellitus without complications; Z79.4 - rn long term care (current) use of insulin (4) Hypertension Qualifiers: Hypertension type: essential hypertension Qualified Code(s): I10 - Essential (primary) hypertension
--- NOTE | 2018-12-05 15:36 | IR Procedure Note ---
Date of procedure: 12/05/18 Consent Obtained: Written consent Timeout: Correct patient and procedure verified, Correct site verified, Time out performed, Skin prep completed Local anesthetic: Lidocaine 1% Was there an salon assistant present: No Estimated blood loss (cc): 0 Complications: None; Tolerated procedure well Indications: right knee superficial fluid collections Procedure Performed: US guided fluid aspiration Results/Findings (any specimens removed): 1-2 cc aspirated, collection appears complex under US Post Procedure Treatment Plan: followup analysis Specimen: 1-2 cc serosanguinous fluid
[2018-12-05] MEDS: Insulin DETEMIR 100 UNIT/ML X5UNITS SQ SCH (21:28)
[2018-12-06 04:24] LABS: Basophils % 0.5 %; Eosinophils # 0.1 K/mcL (0.0-0.6); Eosinophils % 0.9 %; Hematocrit 40.4 % (37.5-50.1); Hemoglobin 13.5 g/dL (12.9-16.9); Immature Granulocytes % 0.5 % (0-4); Lymphocytes # 1.7 K/mcL (0.6-4.6); Lymphocytes % 22.2 %; Mean Corpuscular HGB Conc 33.4 g/dL (31.6-35.5); Mean Corpuscular Hemoglobin 29.3 pg (28.0-33.3); Mean Corpuscular Volume 87.8 fL (83.0-100.0); Mean Platelet Volume 10.6 fL (9.4-12.4); Monocytes # 0.6 K/mcL (0.0-1.3); Monocytes % 8.1 %; Neutrophils # 5.2 K/mcL (1.6-8.9); Platelet Count 249 K/mcL (140-400); Red Cell Distribution Width 12.4 % (11.5-14.5); Segmented Neutrophils % 67.8 %; White Blood Count 7.7 K/mcL (4.3-11.1)
[2018-12-06 04:41] LABS: BUN/Creatinine Ratio 13 (6-26); Blood Urea Nitrogen 14 mg/dL (6-20); Calcium 9.1 mg/dL (8.6-10.3); Carbon Dioxide 30 mEq/L (23-29); Chloride 98 mEq/L (98-107); Glucose 350 mg/dL (70-105); Magnesium 1.9 mg/dL (1.6-2.6); Osmolality,Calculated 296 (280-300); Potassium 4.4 mEq/L (3.5-5.1); Sodium 136 mEq/L (136-145); eGFR For African Americans > 60 (> 60); eGFR For Non-African Americans > 60 (> 60)
[2018-12-06] MEDS: *HR* Heparin 5,000 UNIT/ML VIAL SQ SCH ×2 (05:16→19:04)
[2018-12-06] MEDS: Cefepime HCl 2,000 MG in 0.9 % Sodium Chloride Mini Bag 100 ML IVPB SCH ×2 (05:16→19:45)
--- NOTE | 2018-12-06 07:32 | Orthopedics Progress Note ---
Date of Encounter: 12/06/18 Time of Encounter: 07:45 - Assessment and Plan (1) Pain in right knee Current Visit: Yes Status: Acute Qualifiers: Chronicity: unspecified Qualified Code(s): M25.561 - Pain in right knee (2) Effusion, right knee Current Visit: Yes Status: Acute (3) Abscess of right leg Current Visit: Yes Status: Acute Subjective Principal diagnosis: right knee pain/possible infection Interval history: Prelim cultures of fluid from superficial fluid collection show G+ cocci from fluid collection aspiration done by IR HOWEVER knee joint itself was not aspirated. There still exists for concern regarding communication of fluid to the joint. Aspirated JOINT this morning under sterile conditions. Patient tolerated well. Sent for stat gram stain as well as cultures and counts to evaluate need for surgical intervention. Case discussed with Dr. Briones IF JOINT SYNOVIAL FLUID presents infectious concern, recommendation would be for irrigation and debridement of the knee. Will await cultures and gram stain results. Joint aspirated - sent for culture and stat gram stain. Bloody fluid aspirated. Patient should be NPO until prelim results in case of need for surgical interve ntion 1100 - Case discussed with Dr. Briones and Dr. Kingston (hospitalist). As patient has continued with pain, but joint swelling has actually decreased since superficial fluid collection was drained, there is significant concern for joint communication. Plan for open irrigation and debridement with possible joint aspiration with Dr. Briones today. Continue NPO. Informed consent reviewed and obtained from patient who was found to be A&Ox3. Spouse and best friend at bedside. Objective Vital signs: Vital Signs Temp Pulse Resp BP Pulse Ox 12/06/18 07:18 97.8 F 87 17 170/94 97 12/06/18 04:32 168/98 12/06/18 04:05 98.1 F 97 17 176/98 95 12/05/18 23:20 98.6 F 92 14 158/93 94 12/05/18 20:57 98.9 F 92 15 152/95 93 12/05/18 15:51 97.7 F 89 16 133/82 98 12/05/18 12:30 99.3 F 86 16 149/79 96 Intake and Output 12/05/18 12/05/18 12/06/18 15:59 23:59 07:59 Intake Total 250 / 700 350 / 700 100 / 100 Balance 250 / 700 350 / 700 100 / 100 Intake: IV Fluids 250 / 700 350 / 700 100 / 100 0.9 % Sodium Chloride 1,000 ML 0 / 0 @ 75 mls/hr IVC .[id number] [facility] Rx #:[id number] Maxipime 2,000 MG In 0.9 % 100 / 200 100 / 100 Sodium Chloride (Mini-Bag +) 100 ML @ 200 mls/hr IVPB Q12HR [facility] Rx#:[id number] Vancocin 1,250 MG In 0.9 % 250 / 500 250 / 500 Sodium Chloride 250 ML @ 166.67 mls/hr IVPB Q12H [facility] Rx#: [id number] Other: Meal NPO # Voids 1 Blood Glucose* 136 390 299 - Labs CBC & BMP: 12/06/18 03:51 12/06/18 03:51 Labs: Abnormal lab results WBC 12.1 K/mcL (4.3-11.1) H 12/03/18 14:35 Neutrophils # 10.9 K/mcL (1.6-8.9) H 12/03/18 14:35 ESR 63 mm/hr (0-10) H 12/05/18 04:44 Sodium 135 mEq/L (136-145) L 12/03/18 14:35 Chloride 95 mEq/L (98-107) L 12/03/18 14:35 Carbon Dioxide 30 mEq/L (23-29) H 12/06/18 03:51 Glucose 350 mg/dL (70-105) H 12/06/18 03:51 POC Glucose 390 mg/dL (70-99) H 12/05/18 21:11 C-Reactive Protein 22 mg/L (Less than 10) H 12/05/18 04:44 Vancomycin Trough 17 mcg/mL (5-10) H 12/05/18 04:44 Consult Discharge Plan - Plan Referrals: Verena Matt, AIRLINE STATION AGENT [Primary Care Provider] -
[2018-12-06] MEDS: 0.9 % Sodium Chloride 1,000 ML IVC SCH ×3 (08:04→19:46)
[2018-12-06] MEDS: Lactobacillus 1 EACH CAP.SPRINK PO SCH ×2 (08:51→20:55)
[2018-12-06] MEDS: amLODIPine 5 MG TABLET PO SCH (08:51)
[2018-12-06] MEDS: Insulin LISPRO 300 UNITS/3 ML VIAL SQ SCH ×4 (08:52→20:48)
[2018-12-06] MEDS: traMADol 50 MG TABLET PO PRN (08:53)
[2018-12-06] MEDS ORDERED: amLODIPine 5 MG TABLET PO SCH (10:30)
[2018-12-06] MEDS ORDERED: Dexamethasone 4 MG/ML VIAL ONE (16:58)
[2018-12-06] MEDS ORDERED: Lidocaine -MPF 2% 2 ML VIAL ONE (16:58)
[2018-12-06] MEDS ORDERED: Ondansetron 4 MG/2 ML VIAL ONE (16:58)
[2018-12-06] MEDS ORDERED: *HR* FentaNYL (PF) 100 MCG/2 ML VIAL ONE (16:59)
[2018-12-06] MEDS ORDERED: *HR* Midazolam HCl 2 MG/2 ML VIAL ONE (16:59)
[2018-12-06] MEDS ORDERED: *HR* Propofol 200 MG/20 ML VIAL IVP ONE (17:00)
--- NOTE | 2018-12-06 17:07 | Anesthesia Evaluation PreOp ---
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: Other (Neuropathy) Other Medical History: Diabetes Type II, GERD Anesthesia History: No Prior Anesthetic Complications Alcohol Use: none Drug use: none Medications and Allergies Lisinopril [Zestril] 5 mg PO DAILY 12/11/17 [History] Atorvastatin [Lipitor] 40 mg PO HS 11/24/18 [History] Dapagliflozin Propanediol [Farxiga] 10 mg PO DAILY 11/24/18 [History] GlipiZIDE [Glucotrol] 5 mg PO BID 11/24/18 [History] Ibuprofen 800 mg PO BID PRN 11/24/18 [History] Insulin Degludec/Liraglutide [Xultophy 100 Unit-3.6MG/ml Pen] 50 units SQ DAILY 11/24/18 [History] Insulin LISPRO [Humalog Kwikpen U-100] 0 unit SQ TIDAC 11/24/18 [History] Metformin HCl [Fortamet] 500 mg PO DAILY 11/24/18 [History] Omeprazole [PriLOSEC] 40 mg PO DAILY 11/24/18 [History] Lactobacillus [Culturelle] 1 each PO BID #30 cap.sprink 11/27/18 [Rx] Allergy/AdvReac Type Severity Reaction Status Date / Time No Known Allergies Allergy Verified 12/03/18 13:02 - Meds/Allergy Pre-op Review Medications Reviewed: Yes Allergies Reviewed: Yes Beta Blockers on Current Med List: No Anesthesia Results - Labs 12/06/18 03:51 12/06/18 03:51 - Imaging EKG: report reviewed (ST) Anesthesia Exam O2 Sat O2 Sat by Pulse Oximetry 96 O2 Sat by Pulse Oximetry 96 O2 Sat by Pulse Oximetry 96 O2 Sat by Pulse Oximetry 97 O2 Sat by Pulse Oximetry 95 O2 Sat by Pulse Oximetry 94 O2 Sat by Pulse Oximetry 93 Vital Signs Temp Pulse Resp BP Pulse Ox 98.0 F 96 16 160/109 98 12/03/18 13:00 12/03/18 13:00 12/03/18 13:00 12/03/18 13:00 12/03/18 13:00 Height: 5'8 Weight: 207 lbs NPO (# of Hours): MN Pain Scale: 0 - HEENT Pupil (Motor): Pupils equal, EOMI Teeth: Normal Oral Opening: Less than or equal to 3 - CUP SETTER LOCKSTITCH LOC: Oriented CUP SETTER LOCKSTITCH Motor: Normal RUE, Normal LUE, Normal RLE, Normal LLE, Normal Face CUP SETTER LOCKSTITCH Sensory: Normal: RUE, LUE, Face, Deficit: RLE, LLE (neuropathy) - Cardiac Rhythm: Regular Murmur: None JVD: No Carotid Bruit: No - Pulmonary Breath Sounds: bilateral Clear Respiratory Effort: Symmetrical Anesthesia Assess/Plan ASA Score: 3 (HTN DM) Level of consciousness: Cooperative, Oriented Anesthetic Plan: General Autologous Blood: No Monitoring Plan: Standard Monitors Recovery Plan: PACU (Discussed GA, agrees to proceed)
[2018-12-06] MEDS ORDERED: *HR* OxyCODONE Immed Rel 5 MG TABLET PO PRN (18:36)
--- NOTE | 2018-12-06 18:41 | Internal Med Progress Note ---
Hospitalist Progress Note - Encounter Date of Encounter: 12/06/18 Time of Encounter: 12:45 - Subjective Interval History: Mr Bonner upon discussion with the orthopedic team will be scheduled for OR washout of his right knee. He is status post IR- ultrasound guided needle aspiration of the abscess of the right knee. He reports pain in the knee. GEN: Denies fever, chills or malaise HEENT: Denies headache blurriness, or dysphagia RESP: Denies SOB or cough CV: Denies chest pain or palpitations GI: Denies Nausea, vomiting, diarrhea or constipation Reviewed current in hospital medications with modifications see orders Reviewed Routine labs - Exam Vitals: Temp Pulse Resp BP Pulse Ox 100.8 F H 92 16 155/98 96 12/06/18 18:35 12/06/18 18:35 12/06/18 18:35 12/06/18 18:35 12/06/18 18:35 Exam: GEN: NAD, A&O x 3, Pleasant and conversant, , male best friend and a different female friend were at his bedside SKIN: [place] warm acyanotic not jaundice HEART: RRR, no murmurs LUNGS: CTA no wheeze or crackles, overall non labored ABDOMEN; Soft, non tender or distended, BS x 4 normactive EXT: No LE edema, however right lower extremity knee and soft tissue swelling appears much improved from yesterday's exam no erythema or warmth Pedal pulses 1+, radial pulses 2+ PSYCH: Mood and affect is appropriate - Assessment and Plan (1) Abscess of right leg Current Visit: Yes Status: Acute Assessment and Plan: plan for OR for washouts today, aspirated abscess revealed gram-positive cocci await sensitivities Patient is scheduled for interventional radiology intervention with drainage of abscess patient recalls having an open wound few weeks prior to his right knee and soft tissue swelling. Of note during his last hospitalization when he presented with right knee effusion he had joint aspirate which was serosanguineous and the culture was negative. There were initial concern for autoimmune processes due to his history of psoriasis with concern for psoriatic joint however his anti-CCP was negative and his VAN screen was negative. Other possible causes could be pseudogout as such during dialysis has been ordered, we appreciate the surgical team input. We will continue vancomycin and cefepime (2) Effusion, right knee Current Visit: Yes Status: Acute Assessment and Plan: See plan as above Patient with persistent swelling in the right knee initially attribute it to possible autoimmune condition status post knee aspirate which was unrevealing from his last hospitalization 2 weeks ago. 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 CT scan is positive for possible abscess MRI now reveals likely due to abscess. He is on vancomycin and cefepime, would likely require surgical intervention of ortho team on board appreciate their input. Of note He is afebrile and has no leukocytosis (3) Diabetes Current Visit: Yes Status: Acute Assessment and Plan: Continue insulin per protocol, prior hospitalization poorly controlled diabetic- A1c was 11.9 two weeks ago, discussed glycemic control with patient again today. He admits to poorly controlled diabetes that his hemoglobin A1c was 16 few months ago. He has difficulty adhering to his ADA diet (4) Hypertension Current Visit: Yes Status: Acute Assessment and Plan: Continue amlodipine, lisinopril DVT Prophylaxis: Continue heparin subcutaneous - Time Spent with Patient Total time spent is greater than 50% in coordination of care (as documented) at patient's floor/unit and/or counseling patient: Internal Medicine: Result - Labs CBC & Chem 7: 12/06/18 03:51 12/06/18 03:51 Labs: Short CBC 12/06/18 Range/Units 03:51 WBC 7.7 (4.3-11.1) K/mcL Hgb 13.5 (12.9-16.9) g/dL Hct 40.4 (37.5-50.1) % Plt Count 249 (140-400) K/mcL Neutrophils # 5.2 (1.6-8.9) K/mcL BMP 12/06/18 03:51 Sodium 136 Potassium 4.4 Chloride 98 Carbon Dioxide 30 H BUN 14 Creatinine 1.06 Glucose 350 H Calcium 9.1 - ABG Interpretation ABG results: PT/INR, D-dimer PT 11.0 Seconds (9.4-12.1) 12/04/18 03:53 - Impressions Impressions Guidance Ultrasound 12/05/18 00:00 FINDINGS/IMPRESSION: Ultrasound-guided aspiration of the right lower extremity loculated fluid collection. Due to the complexity of the collection, only 1-2 cc of serosanguineous fluid was able to be aspirated. 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
--- NOTE | 2018-12-06 18:50 | Operative Note ---
Date of procedure: 12/06/18 Pre-op diagnosis: Right distal thigh/knee abscess, with knee effusion Post-op diagnosis: same Procedure: Right distal thigh/knee incision and drainage Right knee aspiration of joint Anesthesia: TUTUA Surgeon: Wander Kong Was there an therapist's assistant present: No Estimated blood loss (cc): 10 Tourniquet Time (Minutes): 0 Specimen: Cultures and cell count Condition: stable Disposition: PACU Procedure in Detail: Indications: Patient is 42-year-old uncontrolled diabetic with exercises and ankles who presented with right distal thigh and knee swelling. MRI showing a fluid collection around vastus lateralis, also with reactive joint effusion. The patient was drained by interventional radiology but only removed to 3 mL of fluid. A formal I&D was planned. Procedure: The patient brought operating room and placed or table in supine position. He underwent general anesthesia. A tourniquet was placed on his right thigh. The right lower extremity was then prepped and draped in usual sterile fashion. A timeout was performed. A 5-6 cm longitudinal incision was made midline and lateral aspect of the distal thigh going to the level of the superior pole of the patella. This incision went through the draining needle hole that was previously used. The subcutaneous tissues bluntly spread down to the vastus lateralis. A pocket of pus was not clearly identified. I bluntly spread elevating the subcutaneous fat off the fascia. The vastus lateralis also split longitudinally down to the lateral cortex of the femur. Deep cultures were taken for aerobic and anaerobic. Large hemostat was used to spread anteriorly into the suprapatellar bursa area and still no further large pockets of pus were encountered. Next an 18-gauge spinal needle was introduced inferiorly from the lateral side and aspirated 25 mL of blood-tinged clear yellow fluid. This was sent off for cell count, Gram stain, aerobic and anaerobic cultures. The patient still had some ballottement of the knee. Also swollen on the medial side. I introduced a new 18-gauge needle from the medial side, going to the patella, but no further fluid was aspirated. I probed with the needle and no further fluid was encountered. The open wound was copiously irrigated with the pulse lavage using normal saline. The incision was enclosed with 3-0 nylon vertical mattress and simple sutures. Sterile dressings applied. Patient extubated and taken to recovery ro in stable condition.
--- NOTE | 2018-12-06 19:05 | Anesthesia Evaluation Post Op ---
Date of Encounter: 12/06/18 Time of Encounter: 19:00 - Vital Signs Vital Signs: Vital Signs/O2 Sat/Glucose, Most Current Temp Pulse Resp BP Pulse Ox 12/06/18 18:55 97 16 167/103 94 12/06/18 18:45 93 16 170/99 95 12/06/18 18:35 100.8 F H 92 16 155/98 96 12/06/18 18:25 92 16 151/93 95 12/06/18 18:15 85 16 135/86 100 12/06/18 18:05 100.3 F H 86 14 122/79 97 12/06/18 15:06 98.9 F 87 17 178/106 96 - Lungs Lungs: Clear Ascult./Percussion - Airway Airway: Non-obstructed - Cardiovascular Regular Rate - Mental Status Mental Status: Alert & Oriented, Answers Appropriately - Pain Pain Scale: 0 - Nausea Vomiting Nausea Vomiting: Not Present - Hydration Hydration: Ice chips - Discharge PostOp Status: Transfer Patient to floor
[2018-12-06] MEDS ORDERED: Acetaminophen 325 MG TABLET PO PRN (19:13)
[2018-12-06] MEDS ORDERED: Dextrose Gel 15 GM/37.5 ML TUBE PO PRN ×2 (19:13)
[2018-12-06] MEDS ORDERED: *HR* Dextrose 50 % in Water (Syg) 50 ML SYRINGE IVP PRN (19:13)
[2018-12-06] MEDS: Insulin DETEMIR 100 UNIT/ML X5UNITS SQ SCH (20:56)
[2018-12-06] MEDS ORDERED: Insulin DETEMIR 100 UNIT/ML X5UNITS SQ SCH (21:00)
[2018-12-06 23:49] LABS: Source,Synovial Fluid right knee
[2018-12-07 00:03] LABS: Appearance,Synovial Fluid Hazy (Clear-Hazy); Color,Synovial Fluid Straw (Straw)
[2018-12-07] MEDS: Cefepime HCl 2,000 MG in 0.9 % Sodium Chloride Mini Bag 100 ML IVPB SCH ×2 (05:53→18:58)
[2018-12-07] MEDS: *HR* Heparin 5,000 UNIT/ML VIAL SQ SCH ×2 (05:53→17:33)
[2018-12-07] MEDS: 0.9 % Sodium Chloride 1,000 ML IVC SCH ×2 (06:45→23:13)
[2018-12-07 07:36] LABS: Basophils % 0.3 %; Eosinophils % 0.3 %; Hematocrit 42.5 % (37.5-50.1); Immature Granulocytes % 0.6 % (0-4); Lymphocytes # 1.8 K/mcL (0.6-4.6); Lymphocytes % 13.9 %; Mean Corpuscular HGB Conc 32.9 g/dL (31.6-35.5); Mean Corpuscular Hemoglobin 28.9 pg (28.0-33.3); Mean Corpuscular Volume 87.6 fL (83.0-100.0); Mean Platelet Volume 10.8 fL (9.4-12.4); Monocytes # 0.8 K/mcL (0.0-1.3); Monocytes % 6.1 %; Neutrophils # 9.9 K/mcL (1.6-8.9); Platelet Count 291 K/mcL (140-400); Red Blood Count 4.85 M/mcL (4.19-5.50); Red Cell Distribution Width 12.4 % (11.5-14.5); Segmented Neutrophils % 78.8 %
[2018-12-07 07:53] LABS: White Blood Count 12.6 K/mcL (4.3-11.1)
[2018-12-07 07:56] LABS: BUN/Creatinine Ratio 18 (6-26); Blood Urea Nitrogen 17 mg/dL (6-20); Calcium 9.1 mg/dL (8.6-10.3); Carbon Dioxide 28 mEq/L (23-29); Chloride 97 mEq/L (98-107); Glucose 430 mg/dL (70-105); Osmolality,Calculated 298 (280-300); Potassium 4.5 mEq/L (3.5-5.1); Sodium 134 mEq/L (136-145); eGFR For African Americans > 60 (> 60); eGFR For Non-African Americans > 60 (> 60)
[2018-12-07] MEDS: amLODIPine 5 MG TABLET PO SCH (07:58)
[2018-12-07] MEDS: Lactobacillus 1 EACH CAP.SPRINK PO SCH ×2 (07:59→20:50)
[2018-12-07] MEDS: Insulin LISPRO 300 UNITS/3 ML VIAL SQ SCH ×4 (08:35→20:51)
[2018-12-07] MEDS: Insulin DETEMIR 100 UNIT/ML X5UNITS SQ SCH ×2 (10:37→20:50)
--- NOTE | 2018-12-07 17:40 | Internal Med Progress Note ---
Hospitalist Progress Note - Encounter Date of Encounter: 12/07/18 Time of Encounter: 09:45 - Subjective Interval History: Mr Bonner is s/p right knee, distal thigh I&D. He does report some tenderness and pain in the right knee GEN: Denies fever, chills or malaise HEENT: Denies headache blurriness, or dysphagia RESP: Denies SOB or cough CV: Denies chest pain or palpitations GI: Denies Nausea, vomiting, diarrhea or constipation Reviewed current in hospital medications with modifications see orders Reviewed Routine labs - Exam Vitals: Temp Pulse Resp BP Pulse Ox 98.1 F 95 17 164/94 98 12/07/18 17:25 12/07/18 17:25 12/07/18 17:25 12/07/18 17:25 12/07/18 17:25 Exam: GEN: NAD, A&O x 3, Pleasant and conversant, at his bedside SKIN: [place] warm acyanotic not jaundice HEART: RRR, no murmurs LUNGS: CTA no wheeze or crackles, overall non labored ABDOMEN; Soft, non tender or distended, BS x 4 normactive EXT: No LE edema, right lower extremity wrapped in [place] from the distal thigh down to the foot Pedal pulses 1+, radial pulses 2+ PSYCH: Mood and affect is appropriate - Assessment and Plan (1) Abscess of right leg Current Visit: Yes Status: Acute Assessment and Plan: Status post I&D in the oral postop day 1, Earlier IR- ultrasound-guided aspirated of the abscess revealed gram-positive cocci and now staph aureus sensitivities still pending continue vancomycin and cefepime for now pending all cultures Patient is scheduled for interventional radiology intervention with drainage of abscess patient recalls having an open wound few weeks prior to his right knee and soft tissue swelling. Of note during his last hospitalization when he presented with right knee effusion he had joint aspirate which was serosanguineous and the culture was negative. There were initial concern for autoimmune processes due to his history of psoriasis with concern for psoriatic joint however his anti-CCP was negative and his VAN screen was negative. Other possible causes could be pseudogout as such during dialysis has been ordered, we appreciate the surgical team input. (2) Effusion, right knee Current Visit: Yes Status: Acute Assessment and Plan: See plan as above synovial fluid analysis no crystals, straw-colored hazy Patient with persistent swelling in the right knee initially attribute it to possible autoimmune condition status post knee aspirate which was unrevealing fr om his last hospitalization 2 weeks ago. 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 CT scan is positive for possible abscess MRI now reveals likely due to abscess. He is on vancomycin and cefepime, (3) Diabetes Current Visit: Yes Status: Acute Assessment and Plan: Blood glucose have ranged from 208-400 during with his hospital, on insulin per protocol, would increase his Levemir to 30 units twice a day suspect noncompliance with dietary regimen in the hospital. prior hospitalization poorly controlled diabetic-A1c was 11.9 two weeks ago, discussed glycemic control with patient again today. He admits to poorly controlled diabetes that his hemoglobin A1c was 16 few months ago. He has difficulty adhering to his ADA diet (4) Hypertension Current Visit: Yes Status: Acute Assessment and Plan: Continue amlodipine, lisinopril DVT Prophylaxis: Continue heparin subcutaneous - Time Spent with Patient Total time spent is greater than 50% in coordination of care (as documented) at patient's floor/unit and/or counseling patient: Internal Medicine: Result - Labs CBC & Chem 7: 12/07/18 06:56 12/07/18 06:56 Labs: Short CBC 12/07/18 Range/Units 06:56 WBC 12.6 H D (4.3-11.1) K/mcL Hgb 14.0 (12.9-16.9) g/dL Hct 42.5 (37.5-50.1) % Plt Count 291 (140-400) K/mcL Neutrophils # 9.9 H (1.6-8.9) K/mcL BMP 12/07/18 06:56 Sodium 134 L Potassium 4.5 Chloride 97 L Carbon Dioxide 28 BUN 17 Creatinine 0.92 Glucose 430 H Calcium 9.1 - ABG Interpretation ABG results: PT/INR, D-dimer PT 11.0 Seconds (9.4-12.1) 12/04/18 03:53 Consult Discharge Plan - Plan Referrals: Verena Matt, STONE FINISHER [Primary Care Provider] - (3) Diabetes Qualifiers: Diabetes mellitus type: type 2 Diabetes mellitus [facility] insulin use: with mcc use Diabetes mellitus complication status: without complication Qualified Code(s): E11.9 - Type 2 diabetes mellitus without complications; 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
[2018-12-08] MEDS: traMADol 50 MG TABLET PO PRN ×2 (04:30→18:23)
[2018-12-08] MEDS: Cefepime HCl 2,000 MG in 0.9 % Sodium Chloride Mini Bag 100 ML IVPB SCH (06:23)
[2018-12-08] MEDS: *HR* Heparin 5,000 UNIT/ML VIAL SQ SCH ×2 (06:24→16:49)
[2018-12-08] MEDS: Lactobacillus 1 EACH CAP.SPRINK PO SCH ×2 (09:12→20:53)
[2018-12-08] MEDS: Insulin DETEMIR 100 UNIT/ML X5UNITS SQ SCH ×2 (09:13→20:56)
[2018-12-08] MEDS: Insulin LISPRO 300 UNITS/3 ML VIAL SQ SCH ×4 (09:13→20:55)
[2018-12-08] MEDS: amLODIPine 5 MG TABLET PO SCH (09:13)
[2018-12-08 09:38] LABS: Basophils # 0.1 K/mcL (0.0-0.2); Basophils % 0.5 %; Eosinophils # 0.1 K/mcL (0.0-0.6); Eosinophils % 0.8 %; Hematocrit 39.5 % (37.5-50.1); Hemoglobin 12.8 g/dL (12.9-16.9); Immature Granulocytes % 0.4 % (0-4); Lymphocytes % 19.1 %; Mean Corpuscular HGB Conc 32.4 g/dL (31.6-35.5); Mean Corpuscular Hemoglobin 28.6 pg (28.0-33.3); Mean Corpuscular Volume 88.2 fL (83.0-100.0); Mean Platelet Volume 10.5 fL (9.4-12.4); Monocytes % 9.1 %; Neutrophils # 7.4 K/mcL (1.6-8.9); Platelet Count 297 K/mcL (140-400); Red Blood Count 4.48 M/mcL (4.19-5.50); Red Cell Distribution Width 12.5 % (11.5-14.5); Segmented Neutrophils % 70.1 %; White Blood Count 10.6 K/mcL (4.3-11.1)
[2018-12-08 09:49] LABS: BUN/Creatinine Ratio 18 (6-26); Blood Urea Nitrogen 17 mg/dL (6-20); Calcium 9.1 mg/dL (8.6-10.3); Carbon Dioxide 32 mEq/L (23-29); Chloride 97 mEq/L (98-107); Glucose 245 mg/dL (70-105); Magnesium 1.8 mg/dL (1.6-2.6); Osmolality,Calculated 292 (280-300); Potassium 4.2 mEq/L (3.5-5.1); Sodium 136 mEq/L (136-145); eGFR For African Americans > 60 (> 60); eGFR For Non-African Americans > 60 (> 60)
[2018-12-08] MEDS: 0.9 % Sodium Chloride 1,000 ML IVC SCH (16:47)
--- NOTE | 2018-12-08 20:19 | Internal Med Progress Note ---
Hospitalist Progress Note - Encounter Date of Encounter: 12/08/18 Time of Encounter: 10:25 - Subjective Interval History: Mr rico stated he has been urinating just fine however not measuring his urine output. Reports slight discomfort in his right knee, the ultrasound- guided aspirate of the abscess revealed MSSA, so also was the surgically I&D gumaro l continue vancomycin for now would likely de-escalate therapy the next 48 hours after he seen by ID - Exam Vitals: Temp Pulse Resp BP Pulse Ox 98.5 F 95 16 127/79 95 12/08/18 19:17 12/08/18 19:17 12/08/18 19:17 12/08/18 19:17 12/08/18 19:17 Exam: GEN: NAD, A&O x 3, Pleasant and conversant, male friend at his bedside SKIN: [place] warm acyanotic not jaundice HEART: RRR, no murmurs LUNGS: CTA no wheeze or crackles, overall non labored ABDOMEN; Soft, non tender or distended, BS x 4 normactive EXT: No LE edema, much improve soft tissue swelling of the right lower extremity noted Pedal pulses 1+, radial pulses 2+ PSYCH: Mood and affect is appropriate - Assessment and Plan (1) Abscess of right leg Current Visit: Yes Status: Acute Assessment and Plan: Status post I&D in the oral postop day 1, Earlier IR- ultrasound-guided aspirated of the abscess revealed gram-positive cocci and now staph aureus pansensitive MSSA continue vancomycin dc cefepime, will give vancomycin until seen by ID on Sunday Patient is scheduled for interventional radiology intervention with drainage of abscess patient recalls having an open wound few weeks prior to his right knee and soft tissue swelling. Of note during his last hospitalization when he presented with right knee effusion he had joint aspirate which was serosanguineous and the culture was negative. There were initial concern for autoimmune processes due to his history of psoriasis with concern for psoriatic joint however his anti-CCP was negative and his VAN screen was negative. Other possible causes could be pseudogout as such during dialysis has been ordered, we appreciate the surgical team input. (2) Effusion, right knee Current Visit: Yes Status: Acute Assessment and Plan: See plan as above synovial fluid analysis no crystals, straw-colored hazy Patient with persistent swelling in the right knee initially attribute it to possible autoimmune condition status post knee aspirate which was unrevealing f rom his last hospitalization 2 weeks ago. 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 CT scan is positive for possible abscess MRI now reveals likely due to abscess. He is on vancomycin and cefepime, (3) Diabetes Current Visit: Yes Status: Acute Assessment and Plan: Blood glucose have ranged from 208-400 during with his hospital, on insulin per protocol, would increase his Levemir to 30 units twice a day suspect noncompliance with dietary regimen in the hospital. prior hospitalization poorly controlled diabetic-A1c was 11.9 two weeks ago, discussed glycemic control with patient again today. He admits to poorly controlled diabetes that his hemoglobin A1c was 16 few months ago. He has difficulty adhering to his ADA diet, much improved today we will continue to monitor (4) Hypertension Current Visit: Yes Status: Acute Assessment and Plan: Continue amlodipine, lisinopril DVT Prophylaxis: Continue heparin subcutaneous - Time Spent with Patient Total time spent is greater than 50% in coordination of care (as documented) at patient's floor/unit and/or counseling patient: Internal Medicine: Result - Labs CBC & Chem 7: 12/08/18 09:19 12/08/18 09:19 Labs: Short CBC 12/08/18 Range/Units 09:19 WBC 10.6 (4.3-11.1) K/mcL Hgb 12.8 L (12.9-16.9) g/dL Hct 39.5 (37.5-50.1) % Plt Count 297 (140-400) K/mcL Neutrophils # 7.4 (1.6-8.9) K/mcL BMP 12/08/18 09:19 Sodium 136 Potassium 4.2 Chloride 97 L Carbon Dioxide 32 H BUN 17 Creatinine 0.93 Glucose 245 H Calcium 9.1 - ABG Interpretation ABG results: PT/INR, D-dimer PT 11.0 Seconds (9.4-12.1) 12/04/18 03:53 Consult Discharge Plan - Plan Referrals: Verena Matt, GLOBE CHANGER [Primary Care Provider] - (3) Diabetes Qualifiers: Diabetes mellitus type: type 2 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
[2018-12-09 02:26] LABS: Basophils # 0.1 K/mcL (0.0-0.2); Basophils % 0.6 %; Eosinophils # 0.1 K/mcL (0.0-0.6); Eosinophils % 1.5 %; Hematocrit 36.4 % (37.5-50.1); Hemoglobin 11.9 g/dL (12.9-16.9); Immature Granulocytes % 0.3 % (0-4); Lymphocytes # 1.8 K/mcL (0.6-4.6); Lymphocytes % 22.4 %; Mean Corpuscular HGB Conc 32.7 g/dL (31.6-35.5); Mean Corpuscular Volume 88.6 fL (83.0-100.0); Mean Platelet Volume 10.8 fL (9.4-12.4); Monocytes # 0.9 K/mcL (0.0-1.3); Monocytes % 11.5 %; Platelet Count 282 K/mcL (140-400); Red Blood Count 4.11 M/mcL (4.19-5.50); Red Cell Distribution Width 12.3 % (11.5-14.5); Segmented Neutrophils % 63.7 %; White Blood Count 7.8 K/mcL (4.3-11.1)
[2018-12-09 02:42] LABS: BUN/Creatinine Ratio 19 (6-26); Blood Urea Nitrogen 17 mg/dL (6-20); Calcium 8.9 mg/dL (8.6-10.3); Carbon Dioxide 28 mEq/L (23-29); Chloride 100 mEq/L (98-107); Glucose 247 mg/dL (70-105); Magnesium 1.8 mg/dL (1.6-2.6); Osmolality,Calculated 292 (280-300); Potassium 3.9 mEq/L (3.5-5.1); Sodium 136 mEq/L (136-145); eGFR For African Americans > 60 (> 60); eGFR For Non-African Americans > 60 (> 60)
[2018-12-09] MEDS: *HR* Heparin 5,000 UNIT/ML VIAL SQ SCH ×2 (05:34→17:43)
[2018-12-09] MEDS: 0.9 % Sodium Chloride 1,000 ML IVC SCH ×2 (05:37→17:31)
[2018-12-09] MEDS: Insulin LISPRO 300 UNITS/3 ML VIAL SQ SCH ×4 (08:27→20:31)
[2018-12-09] MEDS: amLODIPine 5 MG TABLET PO SCH (08:37)
[2018-12-09] MEDS: Lactobacillus 1 EACH CAP.SPRINK PO SCH ×2 (08:37→20:29)
[2018-12-09] MEDS: Insulin DETEMIR 100 UNIT/ML X5UNITS SQ SCH ×2 (08:47→20:29)
--- NOTE | 2018-12-09 10:28 | Orthopedics Progress Note ---
Date of Encounter: 12/07/18 Time of Encounter: 10:26 Subjective Principal diagnosis: right knee pain/ infection Interval history: The patient is without complaints. Afebrile vital signs are stable. Dressing is clean dry and intact. Neurovascularly intact with regard to bilateral lower extremities. Assessment :stable with knee infection. Plan mobilize ,continue analgesics, continue antibiotics, await cultures, discharge planning. Objective Vital signs: Vital Signs Temp Pulse Resp BP Pulse Ox 12/09/18 08:07 98.1 F 93 17 161/102 95 12/09/18 03:28 98.4 F 92 16 143/89 95 12/09/18 00:05 98.7 F 77 16 115/76 98 12/08/18 19:17 98.5 F 95 16 127/79 95 12/08/18 13:43 97.8 F 86 16 143/79 93 Intake and Output 12/08/18 12/09/18 12/09/18 23:59 07:59 15:59 Intake Total 860 / 2450 1000 / 1000 Output Total 1400 / 2950 0 / 700 700 / 700 Balance -540 / -500 1000 / 300 -700 / 300 Intake: IV Fluids 500 / 1850 1000 / 1000 0.9 % Sodium Chloride 1,000 ML 1000 / 1000 @ 75 mls/hr IVC .[id number] [facility] Rx #:[id number] Vancocin 1,250 MG In 0.9 % 500 / 750 Sodium Chloride 250 ML @ 166.67 mls/hr IVPB Q12H [facility] Rx#: [id number] Oral 360 / 600 0 / 0 Output: Urine 1400 / 2950 0 / 700 700 / 700 Other: Meal Dinner Percent of Meal Consumed 100% # Voids 1 Weight 95.38 kg Blood Glucose* 242 355 Patient Weight 12/09/18 23:59 Weight 95.38 kg - Labs CBC & BMP: 12/09/18 01:39 12/09/18 01:39 Labs: Abnormal lab results WBC 12.6 K/mcL (4.3-11.1) H D 12/07/18 06:56 RBC 4.11 M/mcL (4.19-5.50) L 12/09/18 01:39 Hgb 11.9 g/dL (12.9-16.9) L 12/09/18 01:39 Hct 36.4 % (37.5-50.1) L 12/09/18 01:39 Neutrophils # 9.9 K/mcL (1.6-8.9) H 12/07/18 06:56 ESR 63 mm/hr (0-10) H 12/05/18 04:44 Sodium 134 mEq/L (136-145) L 12/07/18 06:56 Chloride 97 mEq/L (98-107) L 12/08/18 09:19 Carbon Dioxide 32 mEq/L (23-29) H 12/08/18 09:19 Glucose 247 mg/dL (70-105) H 12/09/18 01:39 POC Glucose 223 mg/dL (70-99) H 12/08/18 08:26 C-Reactive Protein 22 mg/L (Less than 10) H 12/05/18 04:44 Synovial RBC 0.012 M/mcl (0.000-0.002) H 12/06/18 08:40 Vancomycin Trough 15 mcg/mL (5-10) H 12/06/18 19:22 Consult Discharge Plan - Plan Referrals: Verena Matt, MECHANIC RECOVERY [Primary Care Provider] -
--- NOTE | 2018-12-09 10:29 | Orthopedics Progress Note ---
Date of Encounter: 12/09/18 Time of Encounter: 10:28 Subjective Principal diagnosis: right knee pain/ infection Interval history: The patient is without complaints. Currently on IV vancomycin. Afebrile vital signs are stable. Dressing is clean dry and intact. Neurovascularly intact with regard to bilateral lower extremities. Cultures revealed staph aureus. Assessment :stable with knee infection. Plan mobilize ,continue analgesics, continue antibiotics, antibiotic change/recommendation and duration per infectious disease service. Discharge planning.. Objective Vital signs: Vital Signs Temp Pulse Resp BP Pulse Ox 12/09/18 08:07 98.1 F 93 17 161/102 95 12/09/18 03:28 98.4 F 92 16 143/89 95 12/09/18 00:05 98.7 F 77 16 115/76 98 12/08/18 19:17 98.5 F 95 16 127/79 95 12/08/18 13:43 97.8 F 86 16 143/79 93 Intake and Output 12/08/18 12/09/18 12/09/18 23:59 07:59 15:59 Intake Total 860 / 2450 1000 / 1000 Output Total 1400 / 2950 0 / 700 700 / 700 Balance -540 / -500 1000 / 300 -700 / 300 Intake: IV Fluids 500 / 1850 1000 / 1000 0.9 % Sodium Chloride 1,000 ML 1000 / 1000 @ 75 mls/hr IVC .[id number] [facility] Rx #:[id number] Vancocin 1,250 MG In 0.9 % 500 / 750 Sodium Chloride 250 ML @ 166.67 mls/hr IVPB Q12H [facility] Rx#: [id number] Oral 360 / 600 0 / 0 Output: Urine 1400 / 2950 0 / 700 700 / 700 Other: Meal Dinner Percent of Meal Consumed 100% # Voids 1 Weight 95.38 kg Blood Glucose* 242 355 Patient Weight 12/09/18 23:59 Weight 95.38 kg - Labs CBC & BMP: 12/09/18 01:39 12/09/18 01:39 Labs: Abnormal lab results WBC 12.6 K/mcL (4.3-11.1) H D 12/07/18 06:56 RBC 4.11 M/mcL (4.19-5.50) L 12/09/18 01:39 Hgb 11.9 g/dL (12.9-16.9) L 12/09/18 01:39 Hct 36.4 % (37.5-50.1) L 12/09/18 01:39 Neutrophils # 9.9 K/mcL (1.6-8.9) H 12/07/18 06:56 ESR 63 mm/hr (0-10) H 12/05/18 04:44 Sodium 134 mEq/L (136-145) L 12/07/18 06:56 Chloride 97 mEq/L (98-107) L 12/08/18 09:19 Carbon Dioxide 32 mEq/L (23-29) H 12/08/18 09:19 Glucose 247 mg/dL (70-105) H 12/09/18 01:39 POC Glucose 223 mg/dL (70-99) H 12/08/18 08:26 C-Reactive Protein 22 mg/L (Less than 10) H 12/05/18 04:44 Synovial RBC 0.012 M/mcl (0.000-0.002) H 12/06/18 08:40 Vancomycin Trough 15 mcg/mL (5-10) H 12/06/18 19:22 Consult Discharge Plan - Plan Referrals: Verena Matt, [employer] [Primary Care Provider] -
--- NOTE | 2018-12-09 12:45 | Internal Med Progress Note ---
Hospitalist Progress Note - Encounter Date of Encounter: 12/09/18 Time of Encounter: 10:55 - Subjective Interval History: Mr. Bonner admits to be noncompliant with his dietary restriction citing he is very hungry. He stated last night after dinner he ate bags of potato chips and popcorn. He was still hungry associate to peanut butter cookies. This morning his "fasting" blood sugar is 335 although the patient technically did not fast since he ate all night. Discussed with patient it is quite apparent he will not be able to adhere to dietary restrictions as such will have a dose increase his insulin to cover his food cravings. GEN: Denies fever, chills or malaise HEENT: Denies headache blurriness, or dysphagia RESP: Denies SOB or cough CV: Denies chest pain or palpitations GI: Denies Nausea, vomiting, diarrhea or constipation Reviewed current in hospital medications with modifications see orders Reviewed Routine labs - Exam Vitals: Temp Pulse Resp BP Pulse Ox 98.1 F 93 17 161/102 95 12/09/18 08:07 12/09/18 08:12/09/18 08:12/09/18 08:12/09/18 11:00 Exam: GEN: NAD, A&O x 3, Pleasant and conversant SKIN: [place] warm acyanotic not jaundice HEART: RRR, no murmurs LUNGS: CTA no wheeze or crackles, overall non labored ABDOMEN; Soft, non tender or distended, BS x 4 normactive EXT: No LE edema, much improve soft tissue swelling of the right lower extremity noted Pedal pulses 1+, radial pulses 2+ PSYCH: Mood and affect is appropriate - Assessment and Plan (1) MSSA (methicillin susceptible Staphylococcus aureus) infection Current Visit: Yes Status: Acute Assessment and Plan: From his right lower extremity joint aspirate as well as surgical I&D, given the complexity of his presentation, case was initially discussed with ID ongoing plan per ID recommendation tomorrow (2) Abscess of right leg Current Visit: Yes Status: Acute Assessment and Plan: Status post I&D in the oral postop day 3, Earlier IR- ultrasound-guided aspirated of the abscess revealed gram-positive cocci and now staph aureus pansensitive MSSA continue vancomycin dc cefepime, will give vancomycin until seen by ID on Sunday given the complexity of his presentation last hospitalization a few weeks ago and this current hospitalization Patient is scheduled for interventional radiology intervention with drainage of abscess patient recalls having an open wound few weeks prior to his right knee and soft tissue swelling. Of note during his last hospitalization when he presented with right knee effusion he had joint aspirate which was serosanguineous and the culture was negative. There were initial concern for autoimmune processes due to his history of psoriasis with concern for psoriatic joint however his anti-CCP was negative and his VAN screen was negative. Other possible causes could be pseudogout as such during dialysis has been ordered, we appreciate the surgical team input. (3) Effusion, right knee Current Visit: Yes Status: Acute Assessment and Plan: See plan as above synovial fluid analysis no crystals, straw-colored hazy Patient with persistent swelling in the right knee initially attribute it to possible autoimmune condition status post knee aspirate which was unrevealing from his last hospitalization 2 weeks ago. Patient's anti-CCP antibodies was negative he did follow up with manager non profit and admitted to be compliant with the discharge medications. CT scan is positive for possible abscess MRI now reveals likely due to abscess. He is on vancomycin and cefepime, (4) Diabetes Current Visit: Yes Status: Acute Assessment and Plan: Blood glucose have ranged from 208-400 during with his hospital, on insulin per protocol, Levemir has been titrated up daily for the past 3 days, suspect noncompliance with dietary regimen in the hospital. When confronted today patient stated that after dinner last night he was still hungry so he ate 2 bags of potato chips and popcorn, and was still hungry so he ate 2 more snacks of peanut butter cookies. Of note prior hospitalization poorly controlled diabetic-A1c was 11.9 two weeks ago, discussed glycemic control with patient again today. He admits to poorly controlled diabetes that his hemoglobin A1c was 16 few months ago. Discussed with patient that given that he has no control of his cravings for food will just increase his insulin to cover his cravings (5) Hypertension Current Visit: Yes Status: Acute Assessment and Plan: Continue amlodipine, lisinopril, BP remains elevated likely secondary to increas ed sodium load from eating bags of potato chips and popcorn as well as peanut butter cookies. Add Toprol in addition to amlodipine and increase lisinopril to 20 mg DVT Prophylaxis: Heparin subcutaneous - Time Spent with Patient Total time spent is greater than 50% in coordination of care (as documented) at patient's floor/unit and/or counseling patient: Internal Medicine: Result - Labs CBC & Chem 7: 12/09/18 01:39 12/09/18 01:39 Labs: Short CBC 12/09/18 Range/Units 01:39 WBC 7.8 (4.3-11.1) K/mcL Hgb 11.9 L (12.9-16.9) g/dL Hct 36.4 L (37.5-50.1) % Plt Count 282 (140-400) K/mcL Neutrophils # 5.0 (1.6-8.9) K/mcL BMP 12/09/18 01:39 Sodium 136 Potassium 3.9 Chloride 100 Carbon Dioxide 28 BUN 17 Creatinine 0.89 Glucose 247 H Calcium 8.9 - ABG Interpretation ABG results: PT/INR, D-dimer PT 11.0 Seconds (9.4-12.1) 12/04/18 03:53 Consult Discharge Plan - Plan Referrals: Verena Matt, [employer] [Primary Care Provider] - (4) Diabetes Qualifiers: Diabetes mellitus type: type 2 Diabetes mellitus nursing home insulin use: with rodent exterminator use Diabetes mellitus complication status: without complication Qual ified Code(s): E11.9 - Type 2 diabetes mellitus without complications; Z79.4 - senior care (current) use of insulin (5) Hypertension Qualifiers: Hypertension type: essential hypertension Qualified Code(s): I10 - Essential (primary) hypertension
[2018-12-09] MEDS: Metoprolol XL (24 HR) Succ 25 MG TAB.ER.24H PO SCH (16:44)
[2018-12-10] MEDS: *HR* Heparin 5,000 UNIT/ML VIAL SQ SCH ×2 (05:26→16:55)
[2018-12-10 05:28] LABS: Basophils # 0.1 K/mcL (0.0-0.2); Basophils % 0.8 %; Eosinophils # 0.2 K/mcL (0.0-0.6); Hematocrit 37.7 % (37.5-50.1); Hemoglobin 12.2 g/dL (12.9-16.9); Immature Granulocytes % 0.4 % (0-4); Lymphocytes # 1.6 K/mcL (0.6-4.6); Lymphocytes % 20.5 %; Mean Corpuscular HGB Conc 32.4 g/dL (31.6-35.5); Mean Corpuscular Hemoglobin 28.7 pg (28.0-33.3); Mean Corpuscular Volume 88.7 fL (83.0-100.0); Mean Platelet Volume 10.8 fL (9.4-12.4); Monocytes # 0.8 K/mcL (0.0-1.3); Monocytes % 10.7 %; Neutrophils # 5.2 K/mcL (1.6-8.9); Platelet Count 294 K/mcL (140-400); Red Blood Count 4.25 M/mcL (4.19-5.50); Red Cell Distribution Width 12.2 % (11.5-14.5); Segmented Neutrophils % 65.6 %; White Blood Count 7.9 K/mcL (4.3-11.1)
[2018-12-10] MEDS: Lisinopril 20 MG TABLET PO SCH (09:19)
[2018-12-10] MEDS: Lactobacillus 1 EACH CAP.SPRINK PO SCH ×2 (09:19→21:21)
[2018-12-10] MEDS: Insulin LISPRO 300 UNITS/3 ML VIAL SQ SCH ×4 (09:19→17:13)
[2018-12-10] MEDS: Metoprolol XL (24 HR) Succ 25 MG TAB.ER.24H PO SCH (09:19)
[2018-12-10] MEDS: amLODIPine 5 MG TABLET PO SCH (09:19)
[2018-12-10 09:23] LABS: BUN/Creatinine Ratio 19 (6-26); Blood Urea Nitrogen 16 mg/dL (6-20); Calcium 9.5 mg/dL (8.6-10.3); Carbon Dioxide 29 mEq/L (23-29); Chloride 100 mEq/L (98-107); Glucose 249 mg/dL (70-105); Magnesium 1.8 mg/dL (1.6-2.6); Osmolality,Calculated 292 (280-300); Potassium 4.1 mEq/L (3.5-5.1); Sodium 136 mEq/L (136-145); eGFR For African Americans > 60 (> 60); eGFR For Non-African Americans > 60 (> 60)
[2018-12-10] MEDS: Insulin DETEMIR 100 UNIT/ML X5UNITS SQ SCH ×2 (10:04→21:21)
--- NOTE | 2018-12-10 11:13 | Infectious Disease Consult ---
Infectious Disease-Consult - Encounter Date/Time Date of Encounter: 12/10/18 Time of Encounter: 11:20 - Data of Consult Patient: new to practice Reason for consult: Right knee abscess Consult date: 12/10/18 Requesting Physician: Ti Vidales Primary Care Provider: Verena Matt CNP - HPI HPI: Mr. Bonner is a 43 year old male with a past medical history of diabetes, hypertension, hyperlipidemia, psoriasis on topical steroid creams, and GERD. The patient was admitted to the hospital 12/03/18 for right knee effusion and cellulitis. We are consulted 12/10/18 for further workup and treatment jeison mmendations for right knee abscess. Briefly, the patient's 43-year-old male with past medical history as stated above. Patient was previously admitted to the hospital 11/23/18 for right knee cellulitis. During that hospitalization, he underwent a bedside arthrocentesis by the orthopedics team cultures were negative. He was discharged home on oral Augmentin, but failed to improve once transitioned to PO antibiotics. He was referred to rheumatology and was sent to the ER when he went for his appt due to lack of improvement. He had a mild leukocytosis. Chest x-ray was negative. CT of the right knee showed cellulitis with phlegmon versus abscess, nonspecific fasciitis, and a small knee effusion. Blood cultures were obtained and were negative 2 sets. He was started empirically on IV antibiotics and admitted to the hospital for further evaluation. Since admission, the patient has undergone an MRI of the right knee that showed findings consistent with abscess, cellulitis, myositis, and a moderate right knee effusion. Orthopedics was consulted who recommended interventional radiology to perform a ultrasound-guided arthrocentesis which yielded only one to 2 miles of severe single-vessel fluid. Cultures were positive for MSSA. He was taken to the operating room 12/06/18 where he underwent a right distal thigh/knee I&D in her right knee aspiration of the joint by Dr. Kong. Intra-op ileal fluid cultures and Gram stain were negative. Abscess cultures were again positive for MSSA. Postop, he developed a low-grade temp, but has been afebrile since then. His white blood cell count has normalized. Tachycardia has resolved. Early, the patient is on vancomycin. We have been asked to evaluate and make further recommendations. During my exam today, the patient states that overall he feels better. He states a couple of days prior to his previous hospitalization he did scrape his knee on the concrete when he was changing a tire. He otherwise denies any known trauma to the area. He denies fevers, chills, rigors. Denies headache or neck pain. Denies chest pain or shortness of breath. Reports a dry cough that has been ongoing for a couple of months now. He denies nausea, vomiting, diarrhea, constipation. Denies abdominal pain or urinary complaints. Denies oral thrush or skin rashes. Denies any pain in his joints except the right knee which has improved since surgery. He states he is only on topical creams for his psoriasis and does not take any systemic medications. The patient lives at home with his family. 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 He denies tobacco, alcohol, or illicit drug use. Denies chronic infectious diseases. Has 4 dogs at home, but denies any bites or scratches. Denies any recent travel outside the [facility]. - ROS Review of Systems: All systems reviewed and no additional remarkable complaints except as stated. - Results CBC & Chem 7: 12/11/18 03:26 12/11/18 03:26 - Exam Vitals: Temp Pulse Resp BP Pulse Ox 97.5 F L 78 20 140/89 97 12/10/18 07:46 12/10/18 07:46 12/10/18 07:46 12/10/18 07:46 12/10/18 07:46 Exam: Head: Atraumatic, normal inspection, normocephalic. Eye: EOMI, PERRLA, no scleral icterus noted. ENT: Mucous membranes moist. No odontogenic infection noted. Neck: Normal inspection, no meningismus. Respiratory: Clear to auscultation. No rales, respiratory distress, rhonchi, or wheezes noted. Cardiovascular: Regular rate and rhythm, S1 and S2 audible. No murmurs, rubs, or gallops. GI: Soft, nondistended, normal bowel sounds. On tender. Extremities: Right knee dressing clean, dry, and intact. Range of motion limited due to pain and swelling. 1+ edema noted to the distal extremity. Back: Normal inspection. No vertebral tenderness noted. Neurological: Alert, oriented 3, no focal deficits. Psychiatric: normal affect, normal mood. Skin: Dry, intact, warm. Normal color. No rashes. Lisinopril [Zestril] 5 mg PO DAILY 12/11/17 [History] Atorvastatin [Lipitor] 40 mg PO HS 11/24/18 [History] Dapagliflozin Propanediol [Farxiga] 10 mg PO DAILY 11/24/18 [History] GlipiZIDE [Glucotrol] 5 mg PO BID 11/24/18 [History] Ibuprofen 800 mg PO BID PRN 11/24/18 [History] Insulin Degludec/Liraglutide [Xultophy 100 Unit-3.6MG/ml Pen] 50 units SQ DAILY 11/24/18 [History] Insulin LISPRO [Humalog Kwikpen U-100] 0 unit SQ TIDAC 11/24/18 [History] Metformin HCl [Fortamet] 500 mg PO DAILY 11/24/18 [History] Omeprazole [PriLOSEC] 40 mg PO DAILY 11/24/18 [History] Lactobacillus [Culturelle] 1 each PO BID #30 cap.sprink 11/27/18 [Rx] ceFAZolin [Ancef] 2,000 mg IV Q8H #27 vial 12/10/18 [Rx] cephALEXin [Keflex] 500 mg PO TID 14 Days #42 capsule 12/11/18 [Rx] Allergy/AdvReac Type Severity Reaction Status Date / Time No Known Allergies Allergy Verified 12/03/18 13:02 - Assessment and Plan (1) Sepsis Status: Resolved The patient had two SIRS criteria on admission. Likely secondary to right knee cellulitis and abscess. Improved. WBC normal. Tachycardia resolved. Blood cultures drawn 12/03/18 are negative x 2 sets. Qualifiers: Sepsis type: methicillin susceptible Staphylococcus aureus Sepsis acute organ dysfunction status: without acute organ dysfunction Qualified Code(s): A41.01 - Sepsis due to Methicillin susceptible Staphylococcus aureus SNOMED Code(s): 64412645 (2) Abscess of right leg Status: Acute Location: Right distal thigh/knee. Causative organism: MSSA. Likely secondary to previous abrasion. CT of the right leg showed phlegmon vs abscess, nonspecific fasciitis, and a small right knee effusion. MRI of the right knee showed an abscess, cellulitis, and myositis with a moderate right knee effusion. Ortho consulted and following. IR consulted. Status post ultrasound-guided drainage of the abscess that yielded 2ml of serosanguinous fluid. Cultures are positive for MSSA. Status post right thigh/knee I & D and right knee joint aspiration 12/06/[address] Kong. Operative note reviewed. Intraoperative cultures of the abscess sites are positive for MSSA. Synovial cultures and gram stain from the knee joint are negative. Currently on Vancomycin. SNOMED Code(s): 485408386 (3) Cellulitis of knee Status: Acute Location: Right knee. Causative organism: MSSA. Likely secondary to previous abrasion. Improved per patient report. Currently on Vancomycin. SNOMED Code(s): 27287489 (4) Knee effusion, right Status: Acute Appears non-specific and not infectious. Synovial fluid gram stain and cultures are negative. SNOMED Code(s): 712100080 (5) Psoriasis Status: Acute SNOMED Code(s): 8009311 (6) Diabetes Status: Acute Recommend aggressive glucose monitoring and control to promote wound healing and prevent re-infection. Management per the primary team. Qualifiers: Diabetes mellitus type: type 2 Diabetes mellitus termite control representative insulin use: with termite control representative use Diabetes mellitus complication status: without complication Qualified Code(s): E11.9 - Type 2 diabetes mellitus without complications; Z79.4 - exterminator helper (current) use of insulin SNOMED Code(s): 59795196 - Recommendations Recommendations: Check ESR and CRP. Post-op management per the orthopedics team. DM management per the primary team. Discontinue Vancomycin. Start cefazolin 2 grams IV Q8H. Duration of treatment depends on the clinical picture, but likely 2 weeks of IV and 2 weeks of PO. Continue IV antibiotics through 12/19/18, then transition to PO Keflex 500mg PO TID. Consult VAT for EPIV/midline placement. Will need weekly CBC, BUN/Cr, ESR, CRP. Will need weekly IV care per protocol. learning support services director to assist with discharge planning. Follow up with ID 12/26/18 at 1500. Past Med Surg Social Fam HX - Past Medical History Attestation: Yes The following information was validated with the patient. Source: patient, old records reviewed, nursing notes reviewed Medical history: diabetes, GERD, hyperlipidemia, hypertension Psychiatric history: no psych history - Past Surgical History Surgical History: no surgical history - Social History Smoking Status: Former smoker Smokeless Tobacco Status: No Alcohol use: none Drug use: none Occupational status: employed Current living situation: Home - Independent Activity Level: Independent ambulation Recent Out of Country Travel Within the Last 8 Weeks: No Exposure or Possible Exposure to Illness During Travel: No - Family History Father Adopted: No Family Member Ethnicity: Non- Living Status: Age at : 61 Hx Family Cardiac Disorders: Yes (HI) Hx Family Respiratory Disorders: No Hx Family Cancer: Yes Hx Family GI Disorders: No Hx Family Endocrine Disorder: Yes (pt states his father's mother had DM) Hx Family Neuromuscular Disorders: No Hx Family Neurologic Disorders: No Hx Family HEENT Disorders: No Hx Family Autoimmune Disorders: No Mother Adopted: No Family Member Ethnicity: Non- Living Status: Still Living Hx Family Cardiac Disorders: No Hx Family Respiratory Disorders: No Hx Family Cancer: Yes (uterus) Hx Family GI Disorders: No Hx Family Endocrine Disorder: No Hx Family Neuromuscular Disorders: No Hx Family Neurologic Disorders: No Hx Family HEENT Disorders: No Hx Family Autoimmune Disorders: No Consult Discharge Plan - Plan Instructions: Cellulitis (DC), Diabetes Mellitus Type 2 in Adults (DC) Additional Instructions: Cleaned the wound to right knee daily using normal saline, pat dry, apply xerofrom, ABD pad, cast padding and alphonso wrap Referrals: Katey Kiran PAC [Physician Senior Qc Technician] - 12/13/18 2:15 pm Cecilia Rivera [employer] [Advanced Practice Nurse] - 12/26/18 3:00 pm Verena Matt [employer] [Primary Care Provider] - Prescriptions: ceFAZolin [Ancef] 2,000 mg IV Q8H #27 vial cephALEXin [Keflex] 500 mg PO TID 14 Days #42 capsule - Attending Attestation I have personally performed a face to face evaluation on this patient. I have reviewed and agree with the care plan. History and Exam by me shows: This is an addendum to original report dictated by Cecilia Rivera CNP. Please refer to Cecilia's note for full detail. Agree with above history of present illness review of systems and physical exam findings. Assessment and plan: 1.Sepsis 2.Abscess of the right leg status post I&D by Dr. Allen 12/06/2018 Intra-Op cultures positive for MSSA 3.Cellulitis of the knee 4.Psoriasis 5.Diabetes mellitus type 2 Recommendations Patient with a deep infection. We will need IV antibiotics for at least 2 weeks full by 2 weeks of oral antibiotics. At this point we can treat the patient with cefazolin 2 g IV every 8 hours. Patient will need a PICC line placement Once the IV antibiotics are stopped in 2 weeks Will switch the patient to oral Keflex 500 mg by mouth 3 times a day through 02/01/2019. Monitor labs for drug toxicity
[2018-12-10] MEDS ORDERED: Aminoglycoside Consult 1 EACH MC ONE (12:50)
[2018-12-10 14:08] LABS: C-Reactive Protein 38 mg/L (Less than 10)
[2018-12-10] MEDS: ceFAZolin 2,000 MG in 0.9 % Sodium Chloride 100 ML IVPB SCH ×2 (16:58→23:23)
--- NOTE | 2018-12-10 21:41 | Internal Med Progress Note ---
Hospitalist Progress Note - Encounter Date of Encounter: 12/10/18 Time of Encounter: 11:00 - Subjective Interval History: Mr Bonner report some improvement in his right knee swollen. Discussed Again importance of glycemic control GEN: Denies fever, chills or malaise HEENT: Denies headache blurriness, or dysphagia RESP: Denies SOB or cough CV: Denies chest pain or palpitations GI: Denies Nausea, vomiting, diarrhea or constipation Reviewed current in hospital medications with modifications see orders Reviewed Routine labs - Exam Vitals: Temp Pulse Resp BP Pulse Ox 99.2 F 98 15 118/71 96 12/10/18 19:15 12/10/18 19:15 12/10/18 19:15 12/10/18 19:15 12/10/18 19:15 Exam: GEN: NAD, A&O x 3, Pleasant and conversant SKIN: [place] warm acyanotic not jaundice HEART: RRR, no murmurs LUNGS: Somewhat diminished but appears CTA no wheeze or crackles, overall non labored ABDOMEN; Soft, non tender or distended, BS x 4 normactive EXT: No LE edema, much improve soft tissue swelling of the right lower extremity noted Pedal pulses 1+, radial pulses 2+ PSYCH: Mood and affect is appropriate - Assessment and Plan (1) MSSA (methicillin susceptible Staphylococcus aureus) infection Current Visit: Yes Status: Acute Assessment and Plan: From his right lower extremity joint aspirate as well as surgical I&D, given the complexity of his presentation, case was initially discussed with ID ongoing plan per ID recommendation- Start cefazolin 2 grams IV Q8H. Duration of treatment depends on the clinical picture, but likely 2 weeks of IV and 2 weeks of PO. Continue IV antibiotics through 12/19/18, then transition to PO Keflex 500mg PO TID. Consult VAT for EPIV/midline placement. Recommended cefazolin 2 g every 8 and quickly transition. Appreciate ID input. Patient will need prescription for dressing changes please check with case management for how to order (2) Abscess of right leg Current Visit: Yes Status: Acute Assessment and Plan: Plan as above per ID recommendation Status post I&D in the oral postop day 3, Earlier IR- ultrasound-guided aspirated of the abscess revealed gram-positive cocci and now staph aureus pansensitive MSSA continue vancomycin dc cefepime, will give vancomycin until seen by ID on Sunday given the complexity of his presentation last hospitalization a few weeks ago and this current hospitalization Patient is scheduled for interventional radiology intervention with drainage of abscess patient recalls having an open wound few weeks prior to his right knee and soft tissue swelling. Of note during his last hospitalization when he presented with right knee effusion he had joint aspirate which was serosanguineous and the culture was negative. There were initial concern for autoimmune processes due to his history of psoriasis with concern for psoriatic joint however his anti-CCP was negative and his VAN screen was negative. Other possible causes could be pseudogout as such during dialysis has been ordered, we appreciate the surgical team input. (3) Effusion, right knee Current Visit: Yes Status: Acute Assessment and Plan: See plan as above synovial fluid analysis no crystals, straw-colored hazy Patient with persistent swelling in the right knee initially attribute it to possible autoimmune condition status post knee aspirate which was unrevealing from his last hospitalization 2 weeks ago. Patient's anti-CCP antibodies was negative he did follow up with mine car mechanic and admitted to be compliant with the discharge medications. CT scan is positive for possible abscess MRI now reveals likely due to abscess. He is on vancomycin and cefepime, (4) Diabetes Current Visit: Yes Status: Acute Assessment and Plan: Blood glucose have ranged from 208-400 during with his hospital, on insulin per protocol, Levemir has been titrated up daily for the past 3 days, suspect noncompliance with dietary regimen in the hospital. When confronted today patient stated that after dinner last night he was still hungry so he ate 2 bags of potato chips and popcorn, and was still hungry so he ate 2 more snacks of peanut butter cookies. Of note prior hospitalization poorly controlled diabetic-A1c was 11.9 two weeks ago, discussed glycemic control with patient again today. He admits to poorly controlled diabetes that his hemoglobin A1c was 16 few months ago. Discussed with patient that given that he has no control of his cravings for food will just increase his insulin to cover his cravings, now levemir 50 mg twice a day. (5) Hypertension Current Visit: Yes Status: Acute Assessment and Plan: Continue amlodipine, lisinopril, BP remains elevated likely secondary to increased sodium load from eating bags of potato chips and popcorn as well as peanut butter cookies. Add Toprol in addition to amlodipine and increase lisinopril to 20 mg DVT Prophylaxis: Heparin subcutaneous - Time Spent with Patient Total time spent is greater than 50% in coordination of care (as documented) at patient's floor/unit and/or counseling patient: Internal Medicine: Result - Labs CBC & Chem 7: 12/10/18 05:11 12/10/18 08:52 Labs: Short CBC 12/10/18 Range/Units 05:11 WBC 7.9 (4.3-11.1) K/mcL Hgb 12.2 L (12.9-16.9) g/dL Hct 37.7 (37.5-50.1) % Plt Count 294 (140-400) K/mcL Neutrophils # 5.2 (1.6-8.9) K/mcL BMP 12/10/18 08:52 Sodium 136 Potassium 4.1 Chloride 100 Carbon Dioxide 29 BUN 16 Creatinine 0.85 Glucose 249 H Calcium 9.5 - ABG Interpretation ABG results: PT/INR, D-dimer PT 11.0 Seconds (9.4-12.1) 12/04/18 03:53 Consult Discharge Plan - Plan Referrals: Verena Matt, MORTICIAN INVESTIGATOR [Primary Care Provider] - Prescriptions: ceFAZolin [Ancef] 2,000 mg IV Q8H #27 vial (4) Diabetes Qualifiers: Diabetes mellitus type: type 2 Diabetes mellitus retirement insulin use: with terminal clerk use Diabetes mellitus complication status: without complication Qualified Code(s): E11.9 - Type 2 diabetes mellitus without complications; Z79.4 - correction (current) use of insulin (5) Hypertension Qualifiers: Hypertension type: essential hypertension Qualified Code(s): I10 - Essential (primary) hypertension
[2018-12-11 03:55] LABS: Basophils % 0.4 %; Eosinophils # 0.1 K/mcL (0.0-0.6); Eosinophils % 1.9 %; Hematocrit 36.4 % (37.5-50.1); Hemoglobin 11.8 g/dL (12.9-16.9); Immature Granulocytes % 0.3 % (0-4); Lymphocytes # 1.6 K/mcL (0.6-4.6); Lymphocytes % 21.5 %; Mean Corpuscular HGB Conc 32.4 g/dL (31.6-35.5); Mean Corpuscular Hemoglobin 28.9 pg (28.0-33.3); Mean Platelet Volume 10.8 fL (9.4-12.4); Monocytes # 0.7 K/mcL (0.0-1.3); Monocytes % 9.2 %; Platelet Count 298 K/mcL (140-400); Red Blood Count 4.09 M/mcL (4.19-5.50); Red Cell Distribution Width 12.3 % (11.5-14.5); Segmented Neutrophils % 66.7 %; White Blood Count 7.5 K/mcL (4.3-11.1)
[2018-12-11 04:12] LABS: BUN/Creatinine Ratio 15 (6-26); Blood Urea Nitrogen 15 mg/dL (6-20); Calcium 9.2 mg/dL (8.6-10.3); Carbon Dioxide 26 mEq/L (23-29); Chloride 102 mEq/L (98-107); Glucose 335 mg/dL (70-105); Magnesium 1.8 mg/dL (1.6-2.6); Osmolality,Calculated 294 (280-300); Sodium 135 mEq/L (136-145); eGFR For African Americans > 60 (> 60); eGFR For Non-African Americans > 60 (> 60)
[2018-12-11] MEDS: *HR* Heparin 5,000 UNIT/ML VIAL SQ SCH (05:05)
[2018-12-11 07:39] VITALS: BP 129/84
[2018-12-11] MEDS: Lisinopril 20 MG TABLET PO SCH (08:51)
[2018-12-11] MEDS: Lactobacillus 1 EACH CAP.SPRINK PO SCH (08:51)
[2018-12-11] MEDS: amLODIPine 5 MG TABLET PO SCH (08:51)
[2018-12-11] MEDS: Metoprolol XL (24 HR) Succ 25 MG TAB.ER.24H PO SCH (08:51)
[2018-12-11] MEDS: ceFAZolin 2,000 MG in 0.9 % Sodium Chloride 100 ML IVPB SCH (08:51)
[2018-12-11] MEDS: Insulin LISPRO 300 UNITS/3 ML VIAL SQ SCH (08:56)
[2018-12-11] MEDS: Insulin DETEMIR 100 UNIT/ML X5UNITS SQ SCH (09:00)
--- NOTE | 2018-12-11 09:47 | Discharge Summary ---
- NOTES TO OUTPATIENT PROVIDER Notes to Outpatient Provider: Came with the absces of the right leg. Dx with cellulitis, being discharged on IV cefazolin until 12/19, then PO for 2 weeks. Follow up on labwork needed Orders not resulted at time of discharge: Pending orders 12/06/18 17:50 Culture,Anaerobic [RM] Routine Culture,Anaerobic [RM] Routine Date of Encounter: 12/11/18 Time of Encounter: 08:30 - Discharge Diagnosis (1) Hypertension Priority: Secondary Status: Acute Qualifiers: Hypertension type: essential hypertension Qualified Code(s): I10 - Essential (primary) hypertension (2) Effusion, right knee Priority: Secondary Status: Acute (3) Diabetes Priority: Secondary Status: Acute Qualifiers: Diabetes mellitus type: type 2 Diabetes mellitus longterm insulin use: with longterm use Diabetes mellitus complication status: without complication Qualified Code(s): E11.9 - Type 2 diabetes mellitus without complications; Z79.4 - nursing home (current) use of insulin (4) Abscess of right leg Priority: Primary Status: Acute (5) MSSA (methicillin susceptible Staphylococcus aureus) infection Priority: Secondary Status: Acute Hospital course: Mr. Bonner is a 43 year old male with a past medical history significant for poorly controlled diabetes mellitus, hypertension, hyperlipidemia, scoliosis, presented with the complaints of right knee pain, swelling and erythema the fever and chills. Patient was diagnosed with sepsis and cellulitis and was started on the broad-spectrum IV antibiotics. Patient got right distal knee incision and drainage along with aspiration of joint. Right knee wound cultures yielded MSSA. Cardiovascular consulted. Patient was started on IV cefazolin to be continued until 12/19/2018 and then Keflex 500 mg 3 times a day with instructions to follow up with ID clinic. Patient was also given the prescription for the wound care supplies. Patient is being discharged in stable condition. - Time Spent with Patient Total time spent providing and/or coordinating discharge services: 49 minutes Time spent: Greater than 30 minutes - Discharge Medications Prescriptions: New ceFAZolin [Ancef] 2,000 mg IV Q8H #27 vial cephALEXin [Keflex] 500 mg PO TID 14 Days #42 capsule Continued Lisinopril [Zestril] 5 mg PO DAILY Metformin HCl [Fortamet] 500 mg PO DAILY Ibuprofen 800 mg PO BID PRN PRN Reason: Pain GlipiZIDE [Glucotrol] 5 mg PO BID Dapagliflozin Propanediol [Farxiga] 10 mg PO DAILY Omeprazole [PriLOSEC] 40 mg PO DAILY Insulin Degludec/Liraglutide [Xultophy 100 Unit-3.6MG/ml Pen] 50 units SQ DAILY Atorvastatin [Lipitor] 40 mg PO HS Insulin LISPRO [Humalog Kwikpen U-100] 0 unit SQ TIDAC Lactobacillus [Culturelle] 1 each PO BID #30 cap.sprink Home Medications: Lisinopril [Zestril] 5 mg PO DAILY 12/11/17 [History] Atorvastatin [Lipitor] 40 mg PO HS 11/24/18 [History] Dapagliflozin Propanediol [Farxiga] 10 mg PO DAILY 11/24/18 [History] GlipiZIDE [Glucotrol] 5 mg PO BID 11/24/18 [History] Ibuprofen 800 mg PO BID PRN 11/24/18 [History] Insulin Degludec/Liraglutide [Xultophy 100 Unit-3.6MG/ml Pen] 50 units SQ DAILY 11/24/18 [History] Insulin LISPRO [Humalog Kwikpen U-100] 0 unit SQ TIDAC 11/24/18 [History] Metformin HCl [Fortamet] 500 mg PO DAILY 11/24/18 [History] Omeprazole [PriLOSEC] 40 mg PO DAILY 11/24/18 [History] Lactobacillus [Culturelle] 1 each PO BID #30 cap.sprink 11/27/18 [Rx] ceFAZolin [Ancef] 2,000 mg IV Q8H #27 vial 12/10/18 [Rx] cephALEXin [Keflex] 500 mg PO TID 14 Days #42 capsule 12/11/18 [Rx] Allergies/Adverse Reactions: Allergy/AdvReac Type Severity Reaction Status Date / Time No Known Allergies Allergy Verified 12/03/18 13:02 Date of admission: 12/08/18 09:37 Primary care physician: Verena Matt CNP Consults: 12/06/18 18:51 Consult to Infectious Diseases [CONS] Routine Consulting Provider: Infectious Disease Elaine Reason for Consult: right knee abscess Call Completed: No 12/09/18 12:54 Consult to Diabetes Education [CONS] Routine Comment: Reason for Consult: Non adherance to ADA diet. Patient overall does not appear to have good comprehension of complications of diabetes. Pictures of diabetic foot ulcers plus other complications of uncontrolled diabetes May come handy in driving home point 12/10/18 15:46 Consult to Invasive Line Access Team [CONS] Routine Reason for Consult: midline Line Type: Midline - Constitutional Vitals: Temp Pulse Resp BP Pulse Ox 98.3 F 90 15 129/84 96 12/11/18 07:37 12/11/18 07:37 12/11/18 07:37 12/11/18 07:37 12/11/18 07:37 Exam: GEN: NAD, A&O x 3, Pleasant and conversant SKIN: [place] warm acyanotic not jaundice HEART: RRR, no murmurs LUNGS: Somewhat diminished but appears CTA no wheeze or crackles, overall non labored ABDOMEN; Soft, non tender or distended, BS x 4 normactive EXT: Right lower extremity dressed. Mild tenderness and cellulitis from the upper aspect of the right thigh. PSYCH: Mood and affect is appropriate - Patient Status Disposition: Home Health Service Condition: Good Functional capacity at discharge: independent ambulation Overall status at discharge: patient is progressing back to baseline - Discharge Instructions Instructions: Cellulitis (DC), Diabetes Mellitus Type 2 in Adults (DC) Follow Up With: Katey Kiran PAC [Physician Blower Room Attendant] - 12/13/18 2:15 pm Cecilia Rivera CNP [Advanced Practice Nurse] - 12/26/18 3:00 pm Verena Matt CNP [Primary Care Provider] -
--- NOTE | 2018-12-11 11:07 | Infectious Disease Progress No ---
ID Progress Note Date of Encounter: 12/11/18 Time of Encounter: 11:05 - Subjective Subjective: Patient seen and examined. No acute events noted overnight. Pending discharge. States overall he feels well. Denies fevers, chills, rigors. Denies chest pain, shortness of breath, or cough. Denies nausea, vomiting, diarrhea, constipation. States his last bowel movement was 2 days ago. Denies abdominal pain or urinary complaints. Denies oral thrush or skin rashes. Reports pain to the right knee is improved and states it is just more stiff and painful. - Objective CBC & Chem 7: 12/11/18 03:26 12/11/18 03:26 - Exam Vitals: Temp Pulse Resp BP Pulse Ox 98.3 F 90 15 129/84 96 12/11/18 07:37 12/11/18 07:37 12/11/18 07:37 12/11/18 07:37 12/11/18 07:37 Exam: Head: Atraumatic, normal inspection, normocephalic. Eye: EOMI, PERRLA, no scleral icterus noted. ENT: Mucous membranes moist. No odontogenic infection noted. Neck: Normal inspection, no meningismus. Respiratory: Clear to auscultation. No rales, respiratory distress, rhonchi, or wheezes noted. Cardiovascular: Regular rate and rhythm, S1 and S2 audible. No murmurs, rubs, or gallops. GI: Soft, nondistended, normal bowel sounds. On tender. Extremities: Right knee dressing clean, dry, and intact. Range of motion limited due to pain and swelling. 1+ edema noted to the distal extremity. Neurological: Alert, oriented 3, no focal deficits. Psychiatric: normal affect, normal mood. Skin: Dry, intact, warm. Normal color. No rashes. - Assessment and Plan (1) Sepsis Current Visit: Yes Status: Resolved The patient had two SIRS criteria on admission. Likely secondary to right knee cellulitis and abscess. Improved. WBC normal. Tachycardia resolved. Blood cultures drawn 12/03/18 are negative x 2 sets. Qualifiers: Sepsis type: methicillin susceptible Staphylococcus aureus Sepsis acute organ dysfunction status: without acute organ dysfunction Qualified Code(s): A41.01 - Sepsis due to Methicillin susceptible Staphylococcus aureus SNOMED Code(s): 04222755 (2) Abscess of right leg Current Visit: Yes Status: Acute Location: Right distal thigh/knee. Causative organism: MSSA. Likely secondary to previous abrasion. CT of the right leg showed phlegmon vs abscess, nonspecific fasciitis, and a small right knee effusion. MRI of the right knee showed an abscess, cellulitis, and myositis with a moderate right knee effusion. Ortho consulted and following. IR consulted. Status post ultrasound-guided drainage of the abscess that yielded 2ml of serosanguinous fluid. Cultures are positive for MSSA. Status post right thigh/knee I & D and right knee joint aspiration 12/06/[address] Kong. Operative note reviewed. Intraoperative cultures of the abscess sites are positive for MSSA. Synovial cultures and gram stain from the knee joint are negative. Currently on cefazolin. SNOMED Code(s): 694796062 (3) Cellulitis of knee Current Visit: Yes Status: Acute Location: Right knee. Causative organism: MSSA. Likely secondary to previous abrasion. Improved per patient report. Currently on cefazolin. SNOMED Code(s): 83273684 (4) Knee effusion, right Current Visit: No Status: Acute Appears non-specific and not infectious. Synovial fluid gram stain and cultures are negative. SNOMED Code(s): 683331292 (5) Psoriasis Current Visit: No Status: Acute SNOMED Code(s): 1680368 (6) Diabetes Current Visit: Yes Status: Acute Recommend aggressive glucose monitoring and control to promote wound healing and prevent re-infection. Management per the primary team. Qualifiers: Diabetes mellitus type: type 2 Diabetes mellitus snf insulin use: with terminal press operator use Diabetes mellitus complication status: without complication Qualified Code(s): E11.9 - Type 2 diabetes mellitus without complications; Z79.4 - intermediate accountant (current) use of insulin SNOMED Code(s): 10919135 - Recommendations Recommendations: . Post-op management per the orthopedics team. DM management per the primary team. Continue cefazolin 2 grams IV Q8H. Duration of treatment depends on the clinical picture, but likely 2 weeks of IV and 2 weeks of PO. Continue IV antibiotics through 12/19/18, then transition to PO Keflex 500mg PO TID. Will need weekly CBC, BUN/Cr, ESR, CRP. Will need weekly IV care per protocol. associate director career services to assist with discharge planning. Follow up with ID 12/26/18 at 1500. Consult Discharge Plan - Plan Instructions: Cellulitis (DC), Diabetes Mellitus Type 2 in Adults (DC) Referrals: Katey Kiran PAC [Physician Utilization Specialist] - 12/13/18 2:15 pm Cecilia Rivera CNP [Advanced Practice Nurse] - 12/26/18 3:00 pm Verena Matt CNP [Primary Care Provider] - Prescriptions: ceFAZolin [Ancef] 2,000 mg IV Q8H #27 vial
--- NOTE | 2018-12-11 11:22 | Physician Discharge Referral ---
Home Health/Hosp Referral Info Transfer to: Home Health Provider in Charge Post Discharge: PCP - Diagnosis (1) Hypertension Priority: Secondary Status: Acute (2) Effusion, right knee Priority: Secondary Status: Acute (3) Diabetes Priority: Secondary Status: Acute (4) Abscess of right leg Priority: Primary Status: Acute (5) MSSA (methicillin susceptible Staphylococcus aureus) infection Priority: Secondary Status: Acute - Respiratory Orders Smoking Cessation: Smoking cessation has been advised. For more information, call the [place] [employer] Quit Line at 5-721-TVJR-NOW. - Services Needed Following services are medically necessary services: Nursing, Home Infusion - Transfer Medications Prescriptions: ceFAZolin [Ancef] 2,000 mg IV Q8H #27 vial cephALEXin [Keflex] 500 mg PO TID 14 Days #42 capsule Home Medications: Lisinopril [Zestril] 5 mg PO DAILY 12/11/17 [History] Atorvastatin [Lipitor] 40 mg PO HS 11/24/18 [History] Dapagliflozin Propanediol [Farxiga] 10 mg PO DAILY 11/24/18 [History] GlipiZIDE [Glucotrol] 5 mg PO BID 11/24/18 [History] Ibuprofen 800 mg PO BID PRN 11/24/18 [History] Insulin Degludec/Liraglutide [Xultophy 100 Unit-3.6MG/ml Pen] 50 units SQ DAILY 11/24/18 [History] Insulin LISPRO [Humalog Kwikpen U-100] 0 unit SQ TIDAC 11/24/18 [History] Metformin HCl [Fortamet] 500 mg PO DAILY 11/24/18 [History] Omeprazole [PriLOSEC] 40 mg PO DAILY 11/24/18 [History] Lactobacillus [Culturelle] 1 each PO BID #30 cap.sprink 11/27/18 [Rx] ceFAZolin [Ancef] 2,000 mg IV Q8H #27 vial 12/10/18 [Rx] cephALEXin [Keflex] 500 mg PO TID 14 Days #42 capsule 12/11/18 [Rx] Allergies/Adverse Reactions: Allergy/AdvReac Type Severity Reaction Status Date / Time No Known Allergies Allergy Verified 12/03/18 13:02 Certification: Further, I certify that my clinical findings support that this patient is homebound (i.e. absences from home require considerable and taxing effort and are for medical reasons or episcopal services or infrequently or short duration when for other reasons) because: Homebound Reason: Patient requires assistance of a person or device to safely leave home Attestation: My signature below is to certify that this patient is under my care and that I, or nurse practitioner, or a physician's assistant child care teacher working with me, has a [id number] encounter with this patient.
== END 2018-12-11 12:51 | disposition home health service (06) | DRG 854 ==
LOC: EMEROOARM 12:35 → 3ANU 12:35 → SUATTDRO 19:33 → 3ANU 19:52 → SUATTDRO 12-08 09:37
PROVIDERS: ADMIT Internal Medicine Nephrology; ATTEND Internal Medicine
PROC: IRFLUID (2018-12-05 15:00)

== ENCOUNTER 2021-04-19 12:06 | Inpatient (IN) ==
[2021-04-19] MEDS ORDERED: *HR* Ticagrelor 90 MG TABLET PO ONE (12:22)
[2021-04-19] MEDS ORDERED: Ondansetron 4 MG/2 ML VIAL IVP ONE (12:22)
[2021-04-19] MEDS ORDERED: Aspirin 81 MG TAB.CHEW PO ONE (12:22)
[2021-04-19] MEDS ORDERED: *HR* Heparin 5,000 UNIT/ML VIAL IVP PRN ×2 (12:22)
[2021-04-19] MEDS ORDERED: *HR* Heparin 5,000 UNIT/ML VIAL IVP ONE (12:22)
[2021-04-19] MEDS ORDERED: *HR* Heparin 5,000 UNIT/ML VIAL ONE (12:25)
[2021-04-19] MEDS ORDERED: *HR* Ticagrelor 90 MG TABLET ONE (12:25)
[2021-04-19] MEDS ORDERED: 0.9 % Sodium Chloride 1,000 ML ONE (12:25)
[2021-04-19] MEDS ORDERED: Aspirin 81 MG TAB.CHEW ONE (12:25)
[2021-04-19] MEDS ORDERED: ISOVUE-370 200 ML INFUS..BTL ONE ×2 (12:26→13:10)
[2021-04-19] MEDS ORDERED: Nitroglycerin 1,000 MCG/5 ML VIAL IV ONE (12:26)
[2021-04-19] MEDS ORDERED: 0.9 % Sodium Chloride 2,000 ML ONE (12:26)
[2021-04-19] MEDS ORDERED: Heparin 1,000 UNITS/500 mL 500 ML ONE ×2 (12:26→13:04)
[2021-04-19] MEDS ORDERED: *HR* Heparin 10,000 UNIT/10 ML VIAL ONE (12:26)
[2021-04-19] MEDS ORDERED: Heparin 25,000UNIT/250ML 1/2NS 25,000 UNIT/250 ML IV.SOLN IVC SCH (12:30)
[2021-04-19] MEDS ORDERED: *HR* Midazolam HCl 2 MG/2 ML VIAL ONE (12:33)
[2021-04-19] MEDS ORDERED: *HR* FentaNYL (PF) 100 MCG/2 ML VIAL ONE (12:33)
[2021-04-19 12:40] LABS: Basophils # 0.1 K/mcL (0.0-0.2); Basophils % 0.9 %; Eosinophils # 0.1 K/mcL (0.0-0.6); Eosinophils % 1.2 %; Hematocrit 45.6 % (37.5-50.1); Hemoglobin 15.6 g/dL (12.9-16.9); Immature Granulocytes % 0.2 % (0-4); Lymphocytes # 1.5 K/mcL (0.6-4.6); Lymphocytes % 18.3 %; Mean Corpuscular HGB Conc 34.2 g/dL (31.6-35.5); Mean Corpuscular Hemoglobin 28.9 pg (28.0-33.3); Mean Corpuscular Volume 84.4 fL (83.0-100.0); Monocytes # 0.8 K/mcL (0.0-1.3); Monocytes % 9.5 %; Neutrophils # 5.6 K/mcL (1.6-8.9); Platelet Count 191 K/mcL (140-400); Red Cell Distribution Width 12.3 % (11.5-14.5); Segmented Neutrophils % 69.9 %
[2021-04-19 12:47] LABS: INR 0.9; Prothrombin Time 10.1 Seconds (9.4-12.1)
[2021-04-19 12:50] LABS: Activated Partial Thrombo Time 32.3 Seconds (26.0-36.0)
[2021-04-19] MEDS ORDERED: *HR* Atropine Sulfate 1 MG/10 ML SYRINGE ONE (12:54)
[2021-04-19 13:24] LABS: Troponin I > 73.00 ng/mL (< 0.04)
[2021-04-19 13:37] LABS: BUN/Creatinine Ratio 16 (6-26); Blood Urea Nitrogen 23 mg/dL (6-20); Calcium 9.1 mg/dL (8.6-10.3); Carbon Dioxide 24 mEq/L (23-29); Chloride 90 mEq/L (98-107); Glucose 729 mg/dL (70-105); Osmolality,Calculated 295 (280-300); Potassium 4.5 mEq/L (3.5-5.1); Sodium 123 mEq/L (136-145); eGFR For African Americans > 60 (> 60); eGFR For Non-African Americans 53 (> 60)
[2021-04-19] MEDS ORDERED: Furosemide 40 MG/4 ML VIAL ONE (13:47)
[2021-04-19] MEDS ORDERED: Naloxone 0.4 MG/ML INJ IVP PRN (14:10)
[2021-04-19] MEDS ORDERED: Perflutren Lipid Microsphere 1.3 ML in 0.9 % Sodium Chloride 8.7 ML IVP PRN (14:10)
[2021-04-19] MEDS ORDERED: Insulin LISPRO 300 UNITS/3 ML VIAL SUBQ STA (14:15)
[2021-04-19] MEDS ORDERED: *HR* Dextrose 50 % in Water (Syg) 50 ML SYRINGE IVP PRN ×2 (14:29→15:29)
[2021-04-19] MEDS ORDERED: Dextrose Gel 15 GM/37.5 ML TUBE PO PRN ×2 (14:29)
[2021-04-19] MEDS ORDERED: D5% in Water 1,000 ML IVC PRN (14:29)
[2021-04-19] MEDS ORDERED: Insulin LISPRO 300 UNITS/3 ML VIAL SUBQ SCH (16:30)
[2021-04-19] MEDS ORDERED: Ondansetron 4 MG/2 ML VIAL ONE (19:19)
[2021-04-19] MEDS: Ondansetron 4 MG/2 ML VIAL IVP PRN (19:20)
[2021-04-19] MEDS: *HR* Ticagrelor 90 MG TABLET PO SCH (20:19)
[2021-04-19] MEDS ORDERED: Acetaminophen 325 MG TABLET PO PRN (23:17)
[2021-04-20] MEDS ORDERED: Insulin LISPRO 300 UNITS/3 ML VIAL SUBQ SCH ×2 (06:00)
[2021-04-20] MEDS: Ondansetron 4 MG/2 ML VIAL IVP PRN (06:20)
[2021-04-20 06:47] LABS: Basophils # 0.1 K/mcL (0.0-0.2); Basophils % 0.4 %; Hematocrit 42.8 % (37.5-50.1); Hemoglobin 14.9 g/dL (12.9-16.9); Immature Granulocytes % 0.4 % (0-4); Lymphocytes # 1.3 K/mcL (0.6-4.6); Lymphocytes % 9.6 %; Mean Corpuscular HGB Conc 34.8 g/dL (31.6-35.5); Mean Corpuscular Hemoglobin 29.2 pg (28.0-33.3); Mean Corpuscular Volume 83.8 fL (83.0-100.0); Mean Platelet Volume 12.1 fL (9.4-12.4); Monocytes # 1.4 K/mcL (0.0-1.3); Monocytes % 10.5 %; Neutrophils # 10.8 K/mcL (1.6-8.9); Platelet Count 187 K/mcL (140-400); Red Blood Count 5.11 M/mcL (4.19-5.50); Red Cell Distribution Width 12.5 % (11.5-14.5); Segmented Neutrophils % 79.1 %
[2021-04-20 06:51] LABS: White Blood Count 13.6 K/mcL (4.3-11.1)
[2021-04-20 07:06] LABS: BUN/Creatinine Ratio 16 (6-26); Blood Urea Nitrogen 23 mg/dL (6-20); Calcium 9.2 mg/dL (8.6-10.3); Carbon Dioxide 31 mEq/L (23-29); Chloride 92 mEq/L (98-107); Glucose 364 mg/dL (70-105); Osmolality,Calculated 290 (280-300); Sodium 131 mEq/L (136-145); eGFR For African Americans > 60 (> 60); eGFR For Non-African Americans 53 (> 60)
[2021-04-20] MEDS: *HR* Ticagrelor 90 MG TABLET PO SCH ×2 (08:36→20:59)
[2021-04-20] MEDS: Aspirin 81 MG TAB.CHEW PO SCH (08:36)
[2021-04-20] MEDS: Insulin DETEMIR 100 UNIT/ML X5UNITS SUBQ SCH ×2 (12:00→20:59)
[2021-04-20] MEDS: Insulin LISPRO 300 UNITS/3 ML VIAL SUBQ SCH ×3 (12:00→20:58)
[2021-04-20 12:45] LABS: Magnesium 2.1 mg/dL (1.6-2.6)
[2021-04-20 13:38] LABS: Estimated Average Glucose 413 mg/dl
[2021-04-20] MEDS: Metoprolol XL (24 HR) Succ 25 MG TAB.ER.24H PO SCH (13:53)
[2021-04-20] MEDS ORDERED: Morphine Sulfate 2 MG/ML SYRINGE IVP PRN (15:59)
[2021-04-20] MEDS: *HR* Heparin 5,000 UNIT/ML VIAL SQ SCH (18:27)
[2021-04-21] MEDS: Ondansetron 4 MG/2 ML VIAL IVP PRN (03:12)
[2021-04-21] MEDS: *HR* Heparin 5,000 UNIT/ML VIAL SQ SCH ×2 (05:17→20:43)
[2021-04-21 06:03] LABS: Basophils # 0.1 K/mcL (0.0-0.2); Basophils % 0.5 %; Hematocrit 42.8 % (37.5-50.1); Hemoglobin 14.2 g/dL (12.9-16.9); Immature Granulocytes % 0.3 % (0-4); Lymphocytes # 1.5 K/mcL (0.6-4.6); Lymphocytes % 11.4 %; Mean Corpuscular HGB Conc 33.2 g/dL (31.6-35.5); Mean Corpuscular Hemoglobin 29.5 pg (28.0-33.3); Mean Platelet Volume 12.2 fL (9.4-12.4); Monocytes # 1.8 K/mcL (0.0-1.3); Monocytes % 13.6 %; Neutrophils # 9.6 K/mcL (1.6-8.9); Platelet Count 172 K/mcL (140-400); Red Blood Count 4.81 M/mcL (4.19-5.50); Red Cell Distribution Width 12.4 % (11.5-14.5); Segmented Neutrophils % 74.2 %; White Blood Count 12.9 K/mcL (4.3-11.1)
[2021-04-21 06:28] LABS: BUN/Creatinine Ratio 21 (6-26); Blood Urea Nitrogen 26 mg/dL (6-20); Carbon Dioxide 27 mEq/L (23-29); Chloride 92 mEq/L (98-107); Glucose 232 mg/dL (70-105); Osmolality,Calculated 280 (280-300); Sodium 129 mEq/L (136-145); eGFR For African Americans > 60 (> 60); eGFR For Non-African Americans > 60 (> 60)
[2021-04-21] MEDS: Metoprolol XL (24 HR) Succ 25 MG TAB.ER.24H PO SCH (09:00)
[2021-04-21] MEDS: Aspirin 81 MG TAB.CHEW PO SCH (09:00)
[2021-04-21] MEDS: *HR* Ticagrelor 90 MG TABLET PO SCH ×2 (09:00→20:44)
[2021-04-21] MEDS ORDERED: Insulin DETEMIR 100 UNIT/ML X5UNITS SUBQ SCH (09:00)
[2021-04-21] MEDS: Insulin DETEMIR 100 UNIT/ML X5UNITS SUBQ SCH ×2 (09:01→20:44)
[2021-04-21] MEDS: Insulin LISPRO 300 UNITS/3 ML VIAL SUBQ SCH ×4 (09:02→20:44)
[2021-04-21] MEDS ORDERED: Metoprolol XL (24 HR) Succ 25 MG TAB.ER.24H PO ONE (10:12)
[2021-04-21] MEDS ORDERED: *HR* FentaNYL (PF) 100 MCG/2 ML VIAL ONE (13:34)
[2021-04-21] MEDS ORDERED: *HR* Midazolam HCl 2 MG/2 ML VIAL ONE (13:34)
[2021-04-21] MEDS ORDERED: Nitroglycerin 1,000 MCG/5 ML VIAL IV ONE (13:35)
[2021-04-21] MEDS ORDERED: Heparin 1,000 UNITS/500 mL 500 ML ONE (13:35)
[2021-04-21] MEDS ORDERED: 0.9 % Sodium Chloride 2,000 ML ONE (13:35)
[2021-04-21] MEDS ORDERED: ISOVUE-370 200 ML INFUS..BTL ONE (13:35)
[2021-04-21] MEDS ORDERED: *HR* Heparin 10,000 UNIT/10 ML VIAL ONE ×2 (13:35→14:04)
[2021-04-22 05:33] LABS: Basophils % 0.3 %; Eosinophils % 0.4 %; Hematocrit 38.8 % (37.5-50.1); Hemoglobin 13.2 g/dL (12.9-16.9); Immature Granulocytes % 0.3 % (0-4); Lymphocytes # 1.6 K/mcL (0.6-4.6); Mean Corpuscular Hemoglobin 29.7 pg (28.0-33.3); Mean Corpuscular Volume 87.4 fL (83.0-100.0); Mean Platelet Volume 12.2 fL (9.4-12.4); Monocytes # 1.3 K/mcL (0.0-1.3); Neutrophils # 6.3 K/mcL (1.6-8.9); Platelet Count 172 K/mcL (140-400); Red Blood Count 4.44 M/mcL (4.19-5.50); Red Cell Distribution Width 12.3 % (11.5-14.5); White Blood Count 9.3 K/mcL (4.3-11.1)
[2021-04-22 06:01] LABS: BUN/Creatinine Ratio 25 (6-26); Blood Urea Nitrogen 31 mg/dL (6-20); Calcium 8.6 mg/dL (8.6-10.3); Carbon Dioxide 27 mEq/L (23-29); Chloride 95 mEq/L (98-107); Glucose 139 mg/dL (70-105); Osmolality,Calculated 281 (280-300); Potassium 3.7 mEq/L (3.5-5.1); Sodium 131 mEq/L (136-145); eGFR For African Americans > 60 (> 60); eGFR For Non-African Americans > 60 (> 60)
[2021-04-22] MEDS: *HR* Heparin 5,000 UNIT/ML VIAL SQ SCH (06:25)
[2021-04-22] MEDS: Aspirin 81 MG TAB.CHEW PO SCH (08:30)
[2021-04-22] MEDS: Insulin LISPRO 300 UNITS/3 ML VIAL SUBQ SCH ×3 (08:30→17:18)
[2021-04-22] MEDS: Insulin DETEMIR 100 UNIT/ML X5UNITS SUBQ SCH (08:31)
[2021-04-22] MEDS: *HR* Ticagrelor 90 MG TABLET PO SCH (08:31)
[2021-04-22] MEDS ORDERED: Metoprolol XL (24 HR) Succ 25 MG TAB.ER.24H PO SCH (09:00)
[2021-04-22] MEDS ORDERED: lisinopriL 5 MG TABLET PO SCH (09:30)
[2021-04-22] MEDS: Ondansetron 4 MG/2 ML VIAL IVP PRN (09:53)
[2021-04-22 13:00] VITALS: TEMP 99.2
[2021-04-22] MEDS ORDERED: 0.9 % Sodium Chloride 1,000 ML IVC SCH (13:00)
[2021-04-22 15:24] VITALS: PULSE 100; O2SAT 92
[2021-04-22 17:29] VITALS: BP 88/68
== END 2021-04-22 17:20 | disposition home or self-care (01) | DRG 246 ==
LOC: ICNU 12:06 → EMEROOARM 12:06 → ICNU 12:22
PROVIDERS: ADMIT Internal Medicine; ATTEND Internal Medicine

== ENCOUNTER 2021-10-16 21:02 | Inpatient (IN) ==
[2021-10-16] MEDS ORDERED: Iopamidol - 370 500 ML MLS IVP ONE (21:55)
[2021-10-16] MEDS ORDERED: Piperacillin/Tazobactam 3.375 GM in 0.9 % Sodium Chloride Mini Bag 100 ML IVPB ONE (22:12)
[2021-10-16] MEDS ORDERED: Ondansetron 4 MG/2 ML VIAL IVP ONE (22:14)
[2021-10-16 22:19] LABS: Basophils # 0.1 K/mcL (0.0-0.2); Basophils % 0.6 %; Eosinophils # 0.1 K/mcL (0.0-0.6); Eosinophils % 0.6 %; Hematocrit 41.9 % (37.5-50.1); Hemoglobin 14.4 g/dL (12.9-16.9); Immature Granulocytes % 0.3 % (0-4); Lymphocytes # 1.3 K/mcL (0.6-4.6); Lymphocytes % 11.1 %; Mean Corpuscular HGB Conc 34.4 g/dL (31.6-35.5); Mean Corpuscular Hemoglobin 28.3 pg (28.0-33.3); Mean Corpuscular Volume 82.5 fL (83.0-100.0); Mean Platelet Volume 11.1 fL (9.4-12.4); Monocytes % 8.9 %; Platelet Count 172 K/mcL (140-400); Red Blood Count 5.08 M/mcL (4.19-5.50); Red Cell Distribution Width 13.2 % (11.5-14.5); Segmented Neutrophils % 78.5 %; White Blood Count 11.5 K/mcL (4.3-11.1)
[2021-10-16 22:44] LABS: Alanine Aminotransferase 14 Units/L (7-52); Albumin 3.9 g/dL (3.5-5.7); Albumin/Globulin Ratio 1.1 (1.1-2.2); Alkaline Phosphatase 94 Units/L (34-104); Aspartate Amino Transferase 10 Units/L (13-39); BUN/Creatinine Ratio 19 (6-26); Bilirubin,Total 0.8 mg/dL (0.3-1.0); Blood Urea Nitrogen 27 mg/dL (6-20); Calcium 9.3 mg/dL (8.6-10.3); Carbon Dioxide 26 mEq/L (23-29); Chloride 96 mEq/L (98-107); Globulin 3.4 g/dL (2.4-3.5); Glucose 326 mg/dL (70-105); Osmolality,Calculated 290 (280-300); Potassium 4.1 mEq/L (3.5-5.1); Sodium 131 mEq/L (136-145); Total Protein 7.3 g/dL (6.4-8.9); eGFR For African Americans > 60 (> 60); eGFR For Non-African Americans 54 (> 60)
[2021-10-16 22:47] LABS: C-Reactive Protein 135 mg/L (Less than 10)
[2021-10-16] MEDS ORDERED: Vancomycin 1,250 MG/262.5 ML IV.SOLN IVPB ONE (23:00)
[2021-10-17] MEDS ORDERED: Acetaminophen 325 MG TABLET PO PRN (00:40)
[2021-10-17] MEDS ORDERED: Naloxone 0.4 MG/ML INJ IVP PRN (00:40)
[2021-10-17] MEDS ORDERED: Ondansetron 4 MG/2 ML VIAL IVP PRN (00:40)
[2021-10-17] MEDS ORDERED: Melatonin 3 MG TABLET PO PRN (00:40)
[2021-10-17] MEDS ORDERED: Dextrose Gel 15 GM/37.5 ML TUBE PO PRN ×2 (00:41)
[2021-10-17] MEDS ORDERED: D5% in Water 1,000 ML IVC PRN (00:41)
[2021-10-17] MEDS ORDERED: *HR* Dextrose 50 % in Water (Syg) 50 ML SYRINGE IVP PRN (00:41)
[2021-10-17] MEDS ORDERED: Vancomycin (wt based) 1,000 MG VIAL IVPB SCH (01:00)
[2021-10-17] MEDS ORDERED: Nitroglycerin 0.4 MG TAB.SUBL SL PRN (01:29)
[2021-10-17 02:29] LABS: Basophils # 0.1 K/mcL (0.0-0.2); Basophils % 0.6 %; Eosinophils # 0.1 K/mcL (0.0-0.6); Eosinophils % 0.6 %; Hematocrit 39.1 % (37.5-50.1); Hemoglobin 13.3 g/dL (12.9-16.9); Immature Granulocytes % 0.5 % (0-4); Lymphocytes # 1.4 K/mcL (0.6-4.6); Lymphocytes % 13.6 %; Mean Corpuscular Hemoglobin 28.3 pg (28.0-33.3); Mean Corpuscular Volume 83.2 fL (83.0-100.0); Mean Platelet Volume 11.3 fL (9.4-12.4); Monocytes # 1.1 K/mcL (0.0-1.3); Monocytes % 10.3 %; Neutrophils # 7.9 K/mcL (1.6-8.9); Platelet Count 144 K/mcL (140-400); Red Cell Distribution Width 13.2 % (11.5-14.5); Segmented Neutrophils % 74.4 %; White Blood Count 10.6 K/mcL (4.3-11.1)
[2021-10-17] MEDS ORDERED: Gadolinium Contrast Agent (WT Based) IV PRN (02:35)
[2021-10-17 02:36] LABS: INR 1.1; Prothrombin Time 11.7 Seconds (9.4-12.1)
[2021-10-17 02:38] LABS: Activated Partial Thrombo Time 30.4 Seconds (26.0-36.0)
[2021-10-17 02:41] LABS: BUN/Creatinine Ratio 18 (6-26); Blood Urea Nitrogen 24 mg/dL (6-20); Calcium 8.7 mg/dL (8.6-10.3); Carbon Dioxide 26 mEq/L (23-29); Chloride 95 mEq/L (98-107); Glucose 343 mg/dL (70-105); Osmolality,Calculated 286 (280-300); Phosphorous 3.2 mg/dL (2.7-4.5); Sodium 129 mEq/L (136-145); eGFR For African Americans > 60 (> 60); eGFR For Non-African Americans 57 (> 60)
[2021-10-17] MEDS ORDERED: Insulin LISPRO 300 UNITS/3 ML VIAL SUBQ SCH (07:30)
[2021-10-17] MEDS: *HR* Ticagrelor 90 MG TABLET PO SCH ×3 (08:27→22:12)
[2021-10-17] MEDS: Metoprolol XL (24 HR) Succ 50 MG TAB.ER.24H PO SCH (08:34)
[2021-10-17] MEDS: Aspirin 81 MG TAB.CHEW PO SCH (08:34)
[2021-10-17] MEDS: Piperacillin/Tazobactam 3.375 GM in 0.9 % Sodium Chloride Mini Bag 100 ML IVPB SCH ×3 (08:35→23:33)
[2021-10-17] MEDS: Insulin DETEMIR 100 UNIT/ML X5UNITS SUBQ SCH ×2 (08:49→22:11)
[2021-10-17] MEDS: Insulin LISPRO 300 UNITS/3 ML VIAL SUBQ SCH ×3 (08:50→18:14)
[2021-10-17] MEDS ORDERED: DAPAGLIFLOZIN PROPANEDIOL 10 MG PO SCH (09:00)
[2021-10-17] MEDS ORDERED: Vancomycin 1,000 MG VIAL ONE (12:29)
[2021-10-18] MEDS: Metoprolol XL (24 HR) Succ 50 MG TAB.ER.24H PO SCH (08:17)
[2021-10-18] MEDS: *HR* Ticagrelor 90 MG TABLET PO SCH ×2 (08:17→20:54)
[2021-10-18] MEDS: Aspirin 81 MG TAB.CHEW PO SCH (08:17)
[2021-10-18] MEDS: Piperacillin/Tazobactam 3.375 GM in 0.9 % Sodium Chloride Mini Bag 100 ML IVPB SCH ×3 (08:17→23:17)
[2021-10-18] MEDS: Insulin LISPRO 300 UNITS/3 ML VIAL SUBQ SCH ×3 (08:19→17:43)
[2021-10-18] MEDS: Insulin DETEMIR 100 UNIT/ML X5UNITS SUBQ SCH ×2 (08:25→20:55)
[2021-10-18 09:13] LABS: Bilirubin,Urine Negative (Negative); Blood,Urine Trace (Negative); Clarity,Urine Clear (Clear); Color,Urine Light-Yellow (Yellow); Glucose,Urine (UA) >=1000 mg/dL (Normal); Ketones,Urine Negative (Negative); Leukocyte Esterase,Urine Negative (Negative); Mucus,Urine Few per lpf (None-Few); Nitrite,Urine Negative (Negative); Protein,Urine 70 mg/dL (Neg-Trace); RBC,Urine 0-3 per hpf (0-3); Specific Gravity,Urine > 1.030 (1.010-1.025); Urobilinogen,Urine Normal (Normal); WBC,Urine 0-3 per hpf (0-3)
[2021-10-18 09:16] LABS: Protein/Creatinine Ratio,Urine 2.92 mg/mg (0.00-0.20)
[2021-10-18 11:14] LABS: Magnesium 2.1 mg/dL (1.6-2.6); Phosphorous 2.6 mg/dL (2.7-4.5)
[2021-10-18 11:16] LABS: BUN/Creatinine Ratio 13 (6-26); Blood Urea Nitrogen 19 mg/dL (6-20); Calcium 8.6 mg/dL (8.6-10.3); Carbon Dioxide 27 mEq/L (23-29); Chloride 102 mEq/L (98-107); Glucose 247 mg/dL (70-105); Osmolality,Calculated 289 (280-300); Sodium 134 mEq/L (136-145); eGFR For African Americans > 60 (> 60); eGFR For Non-African Americans 50 (> 60)
[2021-10-18] MEDS ORDERED: 0.9 % Sodium Chloride 1,000 ML IVC SCH (12:45)
[2021-10-19 05:34] LABS: Basophils # 0.1 K/mcL (0.0-0.2); Basophils % 0.5 %; Eosinophils # 0.3 K/mcL (0.0-0.6); Eosinophils % 3.2 %; Hematocrit 36.2 % (37.5-50.1); Hemoglobin 12.1 g/dL (12.9-16.9); Immature Granulocytes % 0.3 % (0-4); Lymphocytes # 1.4 K/mcL (0.6-4.6); Lymphocytes % 15.2 %; Mean Corpuscular HGB Conc 33.4 g/dL (31.6-35.5); Mean Corpuscular Hemoglobin 28.1 pg (28.0-33.3); Mean Platelet Volume 11.3 fL (9.4-12.4); Monocytes # 1.1 K/mcL (0.0-1.3); Monocytes % 12.2 %; Neutrophils # 6.4 K/mcL (1.6-8.9); Platelet Count 167 K/mcL (140-400); Red Blood Count 4.31 M/mcL (4.19-5.50); Red Cell Distribution Width 12.9 % (11.5-14.5); Segmented Neutrophils % 68.6 %; White Blood Count 9.3 K/mcL (4.3-11.1)
[2021-10-19 05:52] LABS: BUN/Creatinine Ratio 14 (6-26); Blood Urea Nitrogen 19 mg/dL (6-20); Calcium 8.4 mg/dL (8.6-10.3); Carbon Dioxide 27 mEq/L (23-29); Chloride 104 mEq/L (98-107); Glucose 291 mg/dL (70-105); Magnesium 2.1 mg/dL (1.6-2.6); Osmolality,Calculated 295 (280-300); Phosphorous 2.9 mg/dL (2.7-4.5); Potassium 4.1 mEq/L (3.5-5.1); Sodium 136 mEq/L (136-145); eGFR For African Americans > 60 (> 60); eGFR For Non-African Americans 56 (> 60)
[2021-10-19] MEDS: Metoprolol XL (24 HR) Succ 50 MG TAB.ER.24H PO SCH (07:44)
[2021-10-19] MEDS: Piperacillin/Tazobactam 3.375 GM in 0.9 % Sodium Chloride Mini Bag 100 ML IVPB SCH ×2 (07:44→17:08)
[2021-10-19] MEDS: Insulin DETEMIR 100 UNIT/ML X5UNITS SUBQ SCH ×2 (07:44→20:50)
[2021-10-19] MEDS: *HR* Ticagrelor 90 MG TABLET PO SCH ×2 (09:34→20:50)
[2021-10-19] MEDS: lisinopriL 5 MG TABLET PO SCH (10:40)
[2021-10-19] MEDS: Insulin LISPRO 300 UNITS/3 ML VIAL SUBQ SCH ×3 (10:40→17:20)
[2021-10-19] MEDS: Aspirin 81 MG TAB.CHEW PO SCH (10:40)
[2021-10-19] MEDS ORDERED: Acetaminophen IV 1,000 MG/100 ML BAG IVPB ONE (11:26)
[2021-10-19] MEDS ORDERED: Famotidine 20 MG/2 ML VIAL IVP ONE (11:26)
[2021-10-19] MEDS ORDERED: *HR* FentaNYL (PF) 100 MCG/2 ML VIAL ONE (11:30)
[2021-10-19] MEDS ORDERED: *HR* Midazolam HCl 2 MG/2 ML VIAL ONE (11:30)
[2021-10-19] MEDS ORDERED: *HR* Propofol 200 MG/20 ML VIAL IVP ONE (11:31)
[2021-10-20] MEDS: Piperacillin/Tazobactam 3.375 GM in 0.9 % Sodium Chloride Mini Bag 100 ML IVPB SCH ×4 (00:46→23:38)
[2021-10-20 06:46] LABS: Basophils % 0.5 %; Eosinophils # 0.5 K/mcL (0.0-0.6); Eosinophils % 6.2 %; Hematocrit 34.3 % (37.5-50.1); Hemoglobin 11.5 g/dL (12.9-16.9); Immature Granulocytes % 0.2 % (0-4); Lymphocytes # 1.5 K/mcL (0.6-4.6); Lymphocytes % 18.2 %; Mean Corpuscular HGB Conc 33.5 g/dL (31.6-35.5); Mean Corpuscular Hemoglobin 28.3 pg (28.0-33.3); Mean Corpuscular Volume 84.3 fL (83.0-100.0); Mean Platelet Volume 11.1 fL (9.4-12.4); Monocytes # 0.9 K/mcL (0.0-1.3); Monocytes % 11.7 %; Neutrophils # 5.1 K/mcL (1.6-8.9); Platelet Count 180 K/mcL (140-400); Red Blood Count 4.07 M/mcL (4.19-5.50); Segmented Neutrophils % 63.2 %; White Blood Count 8.1 K/mcL (4.3-11.1)
[2021-10-20 07:05] LABS: BUN/Creatinine Ratio 15 (6-26); Blood Urea Nitrogen 16 mg/dL (6-20); Calcium 8.4 mg/dL (8.6-10.3); Carbon Dioxide 27 mEq/L (23-29); Chloride 105 mEq/L (98-107); Glucose 179 mg/dL (70-105); Magnesium 2.1 mg/dL (1.6-2.6); Osmolality,Calculated 290 (280-300); Potassium 3.6 mEq/L (3.5-5.1); Sodium 137 mEq/L (136-145); eGFR For African Americans > 60 (> 60); eGFR For Non-African Americans > 60 (> 60)
[2021-10-20] MEDS: Aspirin 81 MG TAB.CHEW PO SCH (08:58)
[2021-10-20] MEDS: lisinopriL 5 MG TABLET PO SCH (08:58)
[2021-10-20] MEDS: Metoprolol XL (24 HR) Succ 50 MG TAB.ER.24H PO SCH (08:59)
[2021-10-20] MEDS: *HR* Ticagrelor 90 MG TABLET PO SCH ×2 (09:00→21:49)
[2021-10-20] MEDS: Insulin LISPRO 300 UNITS/3 ML VIAL SUBQ SCH ×3 (09:05→17:38)
[2021-10-20] MEDS: Insulin DETEMIR 100 UNIT/ML X5UNITS SUBQ SCH ×2 (09:07→21:51)
[2021-10-21 05:47] LABS: Basophils # 0.1 K/mcL (0.0-0.2); Basophils % 0.8 %; Eosinophils # 0.5 K/mcL (0.0-0.6); Eosinophils % 6.4 %; Hematocrit 33.4 % (37.5-50.1); Hemoglobin 11.2 g/dL (12.9-16.9); Immature Granulocytes % 0.4 % (0-4); Lymphocytes # 1.4 K/mcL (0.6-4.6); Lymphocytes % 19.8 %; Mean Corpuscular HGB Conc 33.5 g/dL (31.6-35.5); Mean Corpuscular Hemoglobin 28.4 pg (28.0-33.3); Mean Corpuscular Volume 84.6 fL (83.0-100.0); Mean Platelet Volume 10.9 fL (9.4-12.4); Monocytes # 0.8 K/mcL (0.0-1.3); Neutrophils # 4.5 K/mcL (1.6-8.9); Platelet Count 210 K/mcL (140-400); Red Blood Count 3.95 M/mcL (4.19-5.50); Red Cell Distribution Width 13.1 % (11.5-14.5); Segmented Neutrophils % 61.6 %; White Blood Count 7.3 K/mcL (4.3-11.1)
[2021-10-21 06:01] LABS: BUN/Creatinine Ratio 16 (6-26); Blood Urea Nitrogen 19 mg/dL (6-20); Calcium 8.5 mg/dL (8.6-10.3); Carbon Dioxide 27 mEq/L (23-29); Chloride 106 mEq/L (98-107); Glucose 280 mg/dL (70-105); Osmolality,Calculated 300 (280-300); Potassium 3.7 mEq/L (3.5-5.1); Sodium 139 mEq/L (136-145); eGFR For African Americans > 60 (> 60); eGFR For Non-African Americans > 60 (> 60)
[2021-10-21] MEDS: *HR* Ticagrelor 90 MG TABLET PO SCH ×2 (09:23→21:13)
[2021-10-21] MEDS: lisinopriL 5 MG TABLET PO SCH (09:23)
[2021-10-21] MEDS: Metoprolol XL (24 HR) Succ 50 MG TAB.ER.24H PO SCH (09:23)
[2021-10-21] MEDS: Aspirin 81 MG TAB.CHEW PO SCH (09:23)
[2021-10-21] MEDS: Insulin DETEMIR 100 UNIT/ML X5UNITS SUBQ SCH ×2 (09:25→21:13)
[2021-10-21] MEDS: Insulin LISPRO 300 UNITS/3 ML VIAL SUBQ SCH ×3 (09:26→17:09)
[2021-10-21] MEDS: Piperacillin/Tazobactam 3.375 GM in 0.9 % Sodium Chloride Mini Bag 100 ML IVPB SCH ×3 (09:27→23:48)
[2021-10-22 05:26] LABS: Basophils # 0.1 K/mcL (0.0-0.2); Basophils % 0.7 %; Eosinophils # 0.5 K/mcL (0.0-0.6); Eosinophils % 6.4 %; Hemoglobin 12.2 g/dL (12.9-16.9); Immature Granulocytes % 0.5 % (0-4); Lymphocytes # 1.7 K/mcL (0.6-4.6); Lymphocytes % 20.2 %; Mean Corpuscular Hemoglobin 27.9 pg (28.0-33.3); Mean Corpuscular Volume 84.5 fL (83.0-100.0); Mean Platelet Volume 10.7 fL (9.4-12.4); Monocytes # 0.8 K/mcL (0.0-1.3); Monocytes % 9.1 %; Neutrophils # 5.2 K/mcL (1.6-8.9); Platelet Count 254 K/mcL (140-400); Red Blood Count 4.38 M/mcL (4.19-5.50); Red Cell Distribution Width 13.1 % (11.5-14.5); Segmented Neutrophils % 63.1 %; White Blood Count 8.3 K/mcL (4.3-11.1)
[2021-10-22 05:45] LABS: BUN/Creatinine Ratio 15 (6-26); Blood Urea Nitrogen 17 mg/dL (6-20); Calcium 9.1 mg/dL (8.6-10.3); Carbon Dioxide 28 mEq/L (23-29); Chloride 105 mEq/L (98-107); Glucose 167 mg/dL (70-105); Magnesium 1.9 mg/dL (1.6-2.6); Osmolality,Calculated 295 (280-300); Potassium 3.7 mEq/L (3.5-5.1); Sodium 140 mEq/L (136-145); eGFR For African Americans > 60 (> 60); eGFR For Non-African Americans > 60 (> 60)
[2021-10-22] MEDS: *HR* Ticagrelor 90 MG TABLET PO SCH ×2 (08:18→20:18)
[2021-10-22] MEDS: Metoprolol XL (24 HR) Succ 50 MG TAB.ER.24H PO SCH (08:18)
[2021-10-22] MEDS: Aspirin 81 MG TAB.CHEW PO SCH (08:18)
[2021-10-22] MEDS: lisinopriL 5 MG TABLET PO SCH (08:18)
[2021-10-22] MEDS: Piperacillin/Tazobactam 3.375 GM in 0.9 % Sodium Chloride Mini Bag 100 ML IVPB SCH ×3 (08:19→23:35)
[2021-10-22] MEDS: Insulin DETEMIR 100 UNIT/ML X5UNITS SUBQ SCH ×2 (08:19→20:19)
[2021-10-22] MEDS: Insulin LISPRO 300 UNITS/3 ML VIAL SUBQ SCH ×3 (08:20→16:11)
[2021-10-23 05:24] LABS: Basophils # 0.1 K/mcL (0.0-0.2); Basophils % 0.6 %; Eosinophils # 0.4 K/mcL (0.0-0.6); Eosinophils % 5.1 %; Hematocrit 35.3 % (37.5-50.1); Hemoglobin 11.7 g/dL (12.9-16.9); Immature Granulocytes % 0.5 % (0-4); Lymphocytes # 1.7 K/mcL (0.6-4.6); Lymphocytes % 21.1 %; Mean Corpuscular HGB Conc 33.1 g/dL (31.6-35.5); Mean Corpuscular Hemoglobin 28.1 pg (28.0-33.3); Mean Corpuscular Volume 84.7 fL (83.0-100.0); Mean Platelet Volume 10.4 fL (9.4-12.4); Monocytes # 0.7 K/mcL (0.0-1.3); Monocytes % 8.4 %; Neutrophils # 5.2 K/mcL (1.6-8.9); Platelet Count 265 K/mcL (140-400); Red Blood Count 4.17 M/mcL (4.19-5.50); Red Cell Distribution Width 13.2 % (11.5-14.5); Segmented Neutrophils % 64.3 %; White Blood Count 8.1 K/mcL (4.3-11.1)
[2021-10-23 05:38] LABS: BUN/Creatinine Ratio 15 (6-26); Blood Urea Nitrogen 17 mg/dL (6-20); Calcium 8.8 mg/dL (8.6-10.3); Carbon Dioxide 30 mEq/L (23-29); Chloride 106 mEq/L (98-107); Glucose 289 mg/dL (70-105); Magnesium 1.8 mg/dL (1.6-2.6); Osmolality,Calculated 302 (280-300); Potassium 3.8 mEq/L (3.5-5.1); Sodium 140 mEq/L (136-145); eGFR For African Americans > 60 (> 60); eGFR For Non-African Americans > 60 (> 60)
[2021-10-23 05:54] VITALS: O2SAT 97
[2021-10-23] MEDS: Metoprolol XL (24 HR) Succ 50 MG TAB.ER.24H PO SCH (07:49)
[2021-10-23] MEDS: lisinopriL 5 MG TABLET PO SCH (07:49)
[2021-10-23] MEDS: Piperacillin/Tazobactam 3.375 GM in 0.9 % Sodium Chloride Mini Bag 100 ML IVPB SCH (07:49)
[2021-10-23] MEDS: *HR* Ticagrelor 90 MG TABLET PO SCH (07:49)
[2021-10-23] MEDS: Aspirin 81 MG TAB.CHEW PO SCH (07:49)
[2021-10-23] MEDS: Insulin DETEMIR 100 UNIT/ML X5UNITS SUBQ SCH (07:50)
[2021-10-23] MEDS: Insulin LISPRO 300 UNITS/3 ML VIAL SUBQ SCH ×2 (07:50→11:22)
[2021-10-23 10:40] VITALS: BP 152/94; PULSE 79; TEMP 97.8
== END 2021-10-23 14:23 | disposition home or self-care (01) | DRG 863 ==
LOC: EMEROOARM 21:02 → 4WAOSI 21:02 → SUATTDRO 10-17 00:15 → 4WAOSI 10-17 01:09
PROVIDERS: ADMIT Internal Medicine; ATTEND Pharmacist

== ENCOUNTER 2021-12-17 22:24 | Observation (INO) ==
[2021-12-18 05:48] LABS: Basophils # 0.1 K/mcL (0.0-0.2); Basophils % 0.4 %; Eosinophils # 0.1 K/mcL (0.0-0.6); Eosinophils % 0.7 %; Hematocrit 41.6 % (37.5-50.1); Immature Granulocytes % 0.3 % (0-4); Lymphocytes # 1.7 K/mcL (0.6-4.6); Lymphocytes % 13.6 %; Mean Corpuscular HGB Conc 33.7 g/dL (31.6-35.5); Mean Corpuscular Hemoglobin 28.8 pg (28.0-33.3); Mean Corpuscular Volume 85.6 fL (83.0-100.0); Mean Platelet Volume 11.6 fL (9.4-12.4); Monocytes # 1.2 K/mcL (0.0-1.3); Monocytes % 9.3 %; Neutrophils # 9.5 K/mcL (1.6-8.9); Platelet Count 193 K/mcL (140-400); Red Blood Count 4.86 M/mcL (4.19-5.50); Red Cell Distribution Width 13.6 % (11.5-14.5); Segmented Neutrophils % 75.7 %; White Blood Count 12.5 K/mcL (4.3-11.1)
[2021-12-18 06:06] LABS: Calcium 9.3 mg/dL (8.6-10.3); Potassium 4.2 mEq/L (3.5-5.1)
[2021-12-18] MEDS ORDERED: *HR* HYDROcodone/Acet 10/325 mg TABLET PO ONE (06:39)
[2021-12-18] MEDS ORDERED: *HR* Enoxaparin 80 MG/0.8 ML SYRINGE SQ STA (06:39)
[2021-12-18] MEDS ORDERED: Insulin Human Regular 10 UNIT in 0.9 % Sodium Chloride 10 ML IV ONE (06:39)
[2021-12-18] MEDS ORDERED: Vancomycin 1,250 MG/262.5 ML IV.SOLN IVPB ONE (08:51)
[2021-12-18] MEDS ORDERED: Ondansetron 4 MG/2 ML VIAL IVP PRN (11:16)
[2021-12-18] MEDS ORDERED: Naloxone 0.4 MG/ML INJ IVP PRN (11:16)
[2021-12-18] MEDS ORDERED: Morphine Sulfate 2 MG/ML SYRINGE IVP PRN (11:35)
[2021-12-18] MEDS ORDERED: D5% in Water 1,000 ML IVC PRN (11:35)
[2021-12-18] MEDS ORDERED: Dextrose Gel 15 GM/37.5 ML TUBE PO PRN ×2 (11:35)
[2021-12-18] MEDS ORDERED: *HR* HYDROcodone/Acet 5/325 mg TABLET PO PRN (11:35)
[2021-12-18] MEDS ORDERED: *HR* OxyCODONE Immed Rel 5 MG TABLET PO PRN (11:35)
[2021-12-18] MEDS ORDERED: Acetaminophen 325 MG TABLET PO PRN (11:35)
[2021-12-18] MEDS ORDERED: *HR* Dextrose 50 % in Water (Syg) 50 ML SYRINGE IVP PRN (11:35)
[2021-12-18] MEDS ORDERED: Insulin DETEMIR 100 UNIT/ML X5UNITS SUBQ ONE (11:45)
[2021-12-18] MEDS: Piperacillin/Tazobactam 3.375 GM in 0.9 % Sodium Chloride Mini Bag 100 ML IVPB SCH ×2 (12:41→20:18)
[2021-12-18 13:34] LABS: Estimated Average Glucose 324 mg/dl; Hemoglobin A1C 12.9 %
[2021-12-18] MEDS: Insulin LISPRO 300 UNITS/3 ML VIAL SUBQ SCH ×2 (16:56→20:20)
[2021-12-18] MEDS: Vancomycin 1,250 MG/262.5 ML IV.SOLN IVPB SCH (21:24)
[2021-12-19] MEDS: Piperacillin/Tazobactam 3.375 GM in 0.9 % Sodium Chloride Mini Bag 100 ML IVPB SCH ×3 (04:00→21:19)
[2021-12-19] MEDS: Insulin LISPRO 300 UNITS/3 ML VIAL SUBQ SCH ×4 (09:03→21:23)
[2021-12-19] MEDS ORDERED: 0.9 % Sodium Chloride 1,000 ML IVC SCH (12:30)
[2021-12-19] MEDS ORDERED: Nitroglycerin 0.4 MG TAB.SUBL SL PRN (14:26)
[2021-12-19] MEDS: *HR* Heparin 5,000 UNIT/ML VIAL SQ SCH ×2 (16:19→21:19)
[2021-12-19] MEDS: *HR* Ticagrelor 90 MG TABLET PO SCH (21:19)
[2021-12-19] MEDS: Vancomycin 1,250 MG/262.5 ML IV.SOLN IVPB SCH (22:54)
[2021-12-20] MEDS: Piperacillin/Tazobactam 3.375 GM in 0.9 % Sodium Chloride Mini Bag 100 ML IVPB SCH ×2 (04:50→12:58)
[2021-12-20] MEDS: *HR* Heparin 5,000 UNIT/ML VIAL SQ SCH (05:43)
[2021-12-20 07:33] VITALS: BP 156/96; PULSE 88; TEMP 98.2; O2SAT 96
[2021-12-20] MEDS ORDERED: Aspirin 81 MG TAB.CHEW PO SCH (09:00)
[2021-12-20] MEDS ORDERED: Metoprolol XL (24 HR) Succ 50 MG TAB.ER.24H PO SCH (09:00)
[2021-12-20] MEDS: *HR* Ticagrelor 90 MG TABLET PO SCH (10:11)
[2021-12-20] MEDS: Insulin LISPRO 300 UNITS/3 ML VIAL SUBQ SCH ×2 (10:12→13:44)
[2021-12-20 12:16] LABS: Magnesium 2.2 mg/dL (1.6-2.6); Phosphorous 2.9 mg/dL (2.7-4.5); Potassium 4.1 mEq/L (3.5-5.1)
== END 2021-12-20 13:45 | disposition home or self-care (01) ==
LOC: EMEROOARM 22:24 → 4WAOSI 22:24 → SUATTDRO 12-18 09:09 → 4WAOSI 12-18 10:03 → 3ANU 12-19 16:40
PROVIDERS: ADMIT Student in an Organized Health Care Education/Training Program; ATTEND Internal Medicine